=== PATIENT | male | born 1980 | race Two or more races ===

== ENCOUNTER 2023-03-22 13:54 | Emergency (ER) | payer MEDICAID, SELFPAY ==
[2023-03-22 14:13] VITALS: BP 117/65; BP 128/80; PULSE 63; PULSE 65; RESP 18; TEMP 36.5; O2SAT 98; O2SAT 99; BMI 23.6
--- NOTE | 2023-03-22 14:37 | ED.GENADULT ---
HPI - General Adult General Chief complaint: ETOH/Substance Use Stated complaint: PD requested evaluation, substance use per EMS Time Seen by Provider: 03/22/23 14:12 Source: patient, EMS and RN notes reviewed Mode of arrival: EMS Limitations: no limitations History of Present Illness HPI narrative: This is a 42-year-old male, with history of substance abuse, presenting to the emergency department via EMS after being found passed out an alley. Patient reported to EMS that he used heroin and cocaine. No Narcan was given. Patient is alert, and unsure why he is in the emergency department today. No suicidal or homicidal ideations. No chest pain or shortness of breath. No other complaints or concerns at this time. MD complaint: Drug use Onset (ago): day(s) Radiation: non-radiation Quality: aching Pain Consistency: constant Relieving factors: none Exacerbating factors: none Associated symptoms: denies other symptoms Treatments prior to arrival: none Related Data Allergies Allergy/AdvReac Type Severity Reaction Status Date / Time No Known Allergies Allergy Verified 03/22/23 14:37 Review of Systems Review of Systems: Yes all other systems are reviewed and are negative Constitutional: Constitutional: Reports as per [facility] Social History Social History Alcohol intake: current Alcohol intake frequency: 0-2 drinks per day Smoked in Last 30 Days: Yes Use of substances other than those prescribed or required for medical reasons: Yes Substance Use Type: Crack/Cocaine and Heroin Physical Exam ED Vital Signs: Vital Signs - 24 hr 03/22/23 14:13 Temperature 97.7 F Pulse Rate 65 Respiratory Rate 18 Blood Pressure 117/65 Pulse Oximetry 99 Oxygen Delivery Method Room Air BMI result Body Mass Index 23.6 Const General: cooperative, comfortable and no acute distress Orientation/consciousness: patient oriented x3 Limitations: no limitations HENIN Head: Yes normal to inspection, Yes normocephalic and Yes atraumatic Ears: hearing grossly normal bilaterally General nose exam: Normal external nose present Face and sinus: Yes normal facial exam Mouth: Normal oral and palatal mucosa present, oropharynx normal and moist mucous membranes Throat: Yes posterior oropharynx normal Eyes General: appearance normal, both eyes and all related structures Eyelids: Yes eyelids normal Conjunctivae: conjunctivae normal Sclerae: sclerae normal Pupils: Equal, round and reactive pupils present EOM: EOMs intact bilaterally Neck Neck: Yes normal visual inspection, Yes full ROM and Yes no lymphadenopathy Lymphatic: no lymphadenopathy noted Chest Chest palpation & inspection: normal inspection of the chest Resp Effort & Inspection: normal respiratory effort and able to speak in complete sentences Auscultation: clear to auscultation bilaterally, no crackles, no rales, no rhonchi and no wheezes Cardio Rate: regular rate Rhythm: regular rhythm Heart sounds: S1 normal heart sound present and S2 normal heart sound present GI Inspection: Yes normal to inspection Skin General skin exam: no rashes or lesions noted Trauma: no lacerations or abrasions Wounds: no wounds Neuro General: patient oriented x3 and moves all extremities Cranial nerves: Yes Equal, round and reactive pupils present Extrem General: Yes normal to inspection Right upper extremity: normal to inspection Left upper extremity: normal to inspection Right lower extremity: normal to inspection Left lower extremity: normal to inspection Medical Decision Making Medical Decision Making MDM Narrative: This is a 42-year-old male presenting to the emergency department via EMS after being found in an alley passed out . On arrival, all vital signs within normal limits. Patient is alert and oriented. He did not receive Narcan in route. He is becoming agitated as he is unsure why he is in the emergency department. He is not suicidal or homicidal. Patient has no complaints. There is no need to keep patient here for further evaluation. Patient given a take-home Narcan. Patient stable for discharge. Differential Diagnosis Differential Diagnoses: The differential diagnosis associated with the presentation includes Opioid use disorder, drug abuse, alcohol dependency, anxiety, depression Discharge Plan Discharge Clinical Impression: Drug abuse Patient Disposition: Home, Self-Care Additional Instructions: Avoid using drugs. We gave you a script for Narcan. Please return for re-evaluation if any new or worsening symptoms occur.
[2023-03-22] MEDS: Naloxone HCl Nasal TAKE HOME 4 MG SPRAY 8 MG NOSTRILALT (15:01)
== END 2023-03-22 14:59 | disposition home or self-care (01) ==
LOC: HO.ED 14:46
PROVIDERS: Emergency Provider Emergency Medicine
DX: F11.129 Opioid abuse with intoxication, unspecified (principal); F14.129 Cocaine abuse with intoxication, unspecified; Z71.51 Drug abuse counseling and surveillance of drug abuser
CPT/HCPCS: 99284

== ENCOUNTER 2023-03-23 06:36 | Emergency (ER) | payer MEDICAID, SELFPAY ==
[2023-03-23 06:40] VITALS: BP 142/74; PULSE 50; O2SAT 96
[2023-03-23 06:46] VITALS: BP 118/67; PULSE 55; RESP 18; TEMP 36.5; O2SAT 98; BMI 27.4
--- NOTE | 2023-03-23 07:03 | ED.PSYCH ---
HPI - Psych General Chief Complaint: ETOH/Substance Use Stated Complaint: chronic pain Time Seen by Provider: 03/23/23 07:00 Source: patient Mode of arrival: EMS Limitations: other (poor historian) History of Present Illness HPI Narrative: 42 yo male states he is homeless has hx of cocaine and fentanyl abuse was seen yesterday in ED after being found sleeping in alley he comes today after being found sleeping on sidewalk he denies trauma or headache. he is hungry and asking for food. he has no SI and is more calm and cooperative today. He admits to drug use in the night. he wants to go to detox. he is originally from [place]. complaint: substance abuse Onset (ago): year(s) Duration: getting worse History of same: Yes Relieving factors: none Exacerbating factors: drug use Context: recent drug abuse Associated psychiatric symptoms: none Associated symptoms: denies other symptoms Treatments prior to arrival: none Related Data Allergies Allergy/AdvReac Type Severity Reaction Status Date / Time No Known Allergies Allergy Verified 03/22/23 14:37 Review of Systems Review of Systems: Constitutional : No Fever, No Chills Cardiovascular : No Chest Pain, No SOB Respiratory : No Cough, No Sputum, No Dyspnea Gastrointestinal : No Nausea, No Vomiting, No Diarrhea, No Hematochezia, No Melena Genitourinary : No Dysuria, No Urinary Frequency, No Hematuria Musculoskeletal : No Myalgias Skin : No Skin Lesions, No rash Neuro : No Weakness, No Numbness, No Paresthesias, No Dizziness, No Headache Psych : no Anxiety, no Depression, no SI/HI All other systems reviewed and are negative ON LICENSE OF [facility] Past Medical History Attestation statement: The following information was validated with the patient. Medical History Polysubstance abuse Social History Social History (Updated 03/23/23 @ 07:30 by Candice Christian DO) Alcohol intake: current Alcohol intake frequency: a few times a week Alcohol type: beer Patient Tobacco Use Status: Current someday Tobacco user Smoked in Last 30 Days: Yes Substance Use Type: Crack/Cocaine and Other Substance Use Type Other:: fentanyl Advance Directives: No Physical Exam Vital Signs: Vital Signs: Last Vital Signs Temp 97.8 F 03/23/23 07:06 Pulse 53 03/23/23 12:09 Resp 16 08/21/23 12:09 BP 106/55 L 03/23/23 12:09 Pulse Ox 97 03/23/23 12:09 O2 Del Method Room Air 03/23/23 12:09 BMI result Body Mass Index 27.4 Appearance: slightly somnolent but carries a conversation. Oriented X3. No acute distress. Eyes: Pupils pinpoint ENT: Pharynx normal. Atraumatic Neck: Normal inspection. Neck supple. CVS: Normal heart rate and rhythm. Pulses normal. Respiratory: No respiratory distress. Breath sounds normal. Abdomen: Soft and nontender. Skin: Skin warm and dry. Normal skin color. Normal skin turgor. Extremities: No lower extremity edema. Neuro: Oriented X 3. No motor deficit. No sensory deficit. Course Course Course Narrative: Physician observation started at 735am. Patient placed in physician observation because the patient needed more time for CARE team and our addiction/recovery services to help with detox. At the time observation was started the patient's vitals were stable, patient is slightly sleepy but easily woken, Neuro: nonfocal, CV RRR, Lungs clear Medical Decision Making Medical Decision Making MDM Narrative: 42 yo male with PMH of polysubstance abuse here with c/o wanting detox and being homeless - he states he wants to get off fentanyl and cocaine. He denies SI or medical complaints at this time. He has no signs of head trauma. Will observe for overdose - home narcan ordered, CARE team consult ordered. VS stable. Differential Diagnosis Differential Diagnoses: The differential diagnosis associated with the presentation includes opiate abuse, substance abuse, denies SI Admission/Observation Consideration of admission/observation: Escalation of care including admission/observation considered observe until CARE team can see patient Consult Healthcare Provider Management of the patient was discussed with: Behavioral Health Provider Independent Historian Clinical information obtained from an independent historian. History obtained from or confirmed by: EMS External Record Review External record reviewed: Inpatient record Social Determinants Patient?s care significantly limited by Social Determinants of Health including: Inadequate housing, Low income, Alcoholism and drug addiction in family and Problems related to primary support group Discharge Plan Discharge Clinical Impression: Polysubstance abuse Patient Disposition: Still a Patient Instructions: Polysubstance Abuse (ED)
[2023-03-23 07:06] VITALS: BP 139/87; PULSE 98; RESP 18; TEMP 36.6; O2SAT 98
--- NOTE | 2023-03-23 07:12 | PC.NURSE ---
Patient arrived by ems after being found on the sidewalk shaking. Patient alert, admits to using fentanyl and crack. Reports drinking some beer this morning. Patient requesting detox, provider aware. Reports chronic 2/10 left knee pain. Food and fluids provided per patients request.
--- NOTE | 2023-03-23 09:16 | MHC.RECOVRN ---
Attempt made to make contact with pt, pt sleeping deeply at this time, resp reg and even, VSS on monitor. Plan to re-attempt contact when the pt is more awake and alert.
[2023-03-23 10:26] VITALS: BP 100/46; PULSE 55; RESP 16; O2SAT 96
[2023-03-23 12:09] VITALS: BP 106/55; PULSE 53; RESP 16; O2SAT 97
--- NOTE | 2023-03-23 12:44 | MHC.RECOVSUP ---
Addendum entered by Edwin Mott 03/23/23 14:39: ATS bed search exhausted, pt provided resources to follow up from the community. Original Note: Met with pt in ED21 who is here for DIONNE. Pt reports taking about 4-5 grams of heroin intravenously with last use yesterday. Pt has no history of overdose or ATS and is currently interested in Methadone. Pt is interested in ATS and has no other questions or concerns at this time. ATS bed search in process.
[2023-03-23 14:17] VITALS: BP 114/64; PULSE 55; RESP 18; TEMP 36.3; O2SAT 96
[2023-03-23] MEDS: Naloxone HCl Nasal TAKE HOME 4 MG SPRAY 8 MG NOSTRILALT (14:22)
--- NOTE | 2023-03-23 14:55 | PC.NURSE ---
Discharge instructions reviewed with patient who verbalized understanding
== END 2023-03-23 15:01 | disposition home or self-care (01) ==
PROVIDERS: Emergency Provider Emergency Medicine
DX: F14.19 Cocaine abuse with unspecified cocaine-induced disorder (principal); F17.200 Nicotine dependence, unspecified, uncomplicated; Z71.6 Tobacco abuse counseling
CPT/HCPCS: 99284; 99285

== ENCOUNTER 2023-04-04 19:43 | Emergency (ER) | payer MEDICAID, SELFPAY ==
--- NOTE | ~2023-04-04 | CT_ITS ---
EXAMINATION: CT HEAD WITHOUT CONTRAST CT CERVICAL SPINE WITHOUT CONTRAST CLINICAL INFORMATION: Fall. COMPARISON: None. TECHNIQUE: Imaging was performed from the skull base to vertex without intravenous administration of contrast. In addition, helical noncontrast CT imaging was acquired through the cervical spine and source images were reviewed along with axial reconstructions and sagittal and coronal MPRs. [This CT examination was performed using dose optimization techniques as appropriate, variously including the following: *Automated exposure control *Adjustment of mA and/or kV according to patient size (this includes techniques or standardized protocols for targeted exams where dose is matched to indication/reason for exam; i.e. extremities or head) *Use of iterative reconstruction technique] DLP: 1360 mGy-cm FINDINGS: HEAD: No intracranial mass, hemorrhage, or midline shift is visualized. The ventricles and sulci are proportional. No extra-axial collections are identified. The paranasal sinuses and mastoid air cells are well aerated. CERVICAL SPINE: There is no evidence of acute cervical spine fracture. Vertebral bodies remain normal in height. Cervical vertebrae have normal alignment. There is multilevel degenerative spondylosis of the cervical spine with disc height narrowing and endplate spurs and facet joint arthrosis No pre- or paravertebral soft tissue abnormality is identified. Limited assessment of the lung apices is unremarkable. CT/CT head/brain wo IV con IMPRESSION: 1. No acute intracranial pathology. 2. No CT evidence of acute cervical spine fracture or traumatic subluxation
--- NOTE | ~2023-04-04 | XR_ITS ---
EXAMINATION: 1. Right foot. 2. Right tibia and fibula. CLINICAL INFORMATION: Right foot and leg pain. Swelling. COMPARISON: None. TECHNIQUE: 1. Right foot. Single lateral view of right foot. 2. Right tibia-fibula. 2 views of the lower leg. Images obtained for this exam is limited. The elevator service technician noted patient uncooperative and combative for the exam. FINDINGS: 1. Right foot. There are 2 orthopedic screws in the distal tibia. There are also 2 orthopedic screws in the talus. Dystrophic calcifications around the ankle joint. No displaced fracture of the foot evident. 2. Right tibia-fibula. Images aren't in the lateral projection only covering the leg. The AP crosstable lateral view the is only of the distal tibia and the ankle. Again noted are the 2 orthopedic screws in the distal tibia at the medial malleolus. 2 orthopedic screws in the talus. No acute fracture evident. Small corticated osseous densities around both medial and lateral malleolus chronic related to old trauma. XR/XR foot RT 2V IMPRESSION: Exam limited. 1. Right foot. No acute abnormality. 2. Right tibia-fibula. No acute abnormality of the right tibia-fibula. There are 2 orthopedic screws in the distal tibia and talus. Dystrophic calcifications around the ankle joint. No acute osseous abnormality.
--- NOTE | ~2023-04-04 | XR_ITS ---
EXAMINATION: 1. Right foot. 2. Right tibia and fibula. CLINICAL INFORMATION: Right foot and leg pain. Swelling. COMPARISON: None. TECHNIQUE: 1. Right foot. Single lateral view of right foot. 2. Right tibia-fibula. 2 views of the lower leg. Images obtained for this exam is limited. The earth science laboratory technician noted patient uncooperative and combative for the exam. FINDINGS: 1. Right foot. There are 2 orthopedic screws in the distal tibia. There are also 2 orthopedic screws in the talus. Dystrophic calcifications around the ankle joint. No displaced fracture of the foot evident. 2. Right tibia-fibula. Images aren't in the lateral projection only covering the leg. The AP crosstable lateral view the is only of the distal tibia and the ankle. Again noted are the 2 orthopedic screws in the distal tibia at the medial malleolus. 2 orthopedic screws in the talus. No acute fracture evident. Small corticated osseous densities around both medial and lateral malleolus chronic related to old trauma. XR/XR tibia fibula RT 2V IMPRESSION: Exam limited. 1. Right foot. No acute abnormality. 2. Right tibia-fibula. No acute abnormality of the right tibia-fibula. There are 2 orthopedic screws in the distal tibia and talus. Dystrophic calcifications around the ankle joint. No acute osseous abnormality.
--- NOTE | ~2023-04-04 | CT_ITS ---
EXAMINATION: CT HEAD WITHOUT CONTRAST CT CERVICAL SPINE WITHOUT CONTRAST CLINICAL INFORMATION: Fall. COMPARISON: None. TECHNIQUE: Imaging was performed from the skull base to vertex without intravenous administration of contrast. In addition, helical noncontrast CT imaging was acquired through the cervical spine and source images were reviewed along with axial reconstructions and sagittal and coronal MPRs. [This CT examination was performed using dose optimization techniques as appropriate, variously including the following: *Automated exposure control *Adjustment of mA and/or kV according to patient size (this includes techniques or standardized protocols for targeted exams where dose is matched to indication/reason for exam; i.e. extremities or head) *Use of iterative reconstruction technique] DLP: 1360 mGy-cm FINDINGS: HEAD: No intracranial mass, hemorrhage, or midline shift is visualized. The ventricles and sulci are proportional. No extra-axial collections are identified. The paranasal sinuses and mastoid air cells are well aerated. CERVICAL SPINE: There is no evidence of acute cervical spine fracture. Vertebral bodies remain normal in height. Cervical vertebrae have normal alignment. There is multilevel degenerative spondylosis of the cervical spine with disc height narrowing and endplate spurs and facet joint arthrosis No pre- or paravertebral soft tissue abnormality is identified. Limited assessment of the lung apices is unremarkable. CT/CT cervical spine wo IV con IMPRESSION: 1. No acute intracranial pathology. 2. No CT evidence of acute cervical spine fracture or traumatic subluxation
[2023-04-04 19:56] VITALS: BP 119/64; BP 132/84; PULSE 78; PULSE 82; RESP 20; TEMP 37.9; O2SAT 98; O2SAT 99; BMI 22.9
--- NOTE | 2023-04-04 20:01 | ED_ITS ---
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 Patient admits to hitting head, denies LOC. Denies illicit drug use today. States has been nonambulatory secondary to pain. Patient is poor historian complaint: ankle injury Related Data Allergies Allergy/AdvReac Type Severity Reaction Status Date / Time No Known Allergies Allergy Verified 03/22/23 14:37 Review of Systems Review of Systems: Constitutional: No Fever, No Chills ENT/Mouth: No Ear Pain, No Nasal Congestion, NoNo sore throat, No Rhinorrhea, No Swallowing Difficulty Cardiovascular: No Chest Pain, No SOB Respiratory: No Cough, No Sputum Gastrointestinal: No Nausea, No Vomiting, No Abdominal pain Musculoskeletal: +joint pain, No Myalgias, + Joint Swelling Skin: No Skin Lesions, No rash Neuro: No Weakness, No Numbness, No Paresthesias, +head injury, No LOC Yes all other systems are reviewed and are negative Constitutional: Constitutional: Reports as per [facility] Past Medical History Attestation statement: The following information was validated with the patient. Source: old records reviewed Medical History Polysubstance abuse Social History Social History Alcohol intake: current Alcohol intake frequency: a few times a week Alcohol type: beer Patient Tobacco Use Status: Current someday Tobacco user Substance Use Type: Crack/Cocaine and Other Advance Directives: No Advance Directives Information Provided: Yes Physical Exam Vital Signs: Vital Signs: Last Vital Signs Temp 99.7 F 04/04/23 22:15 Pulse 84 04/04/23 22:15 Resp 17 04/04/23 22:15 BP 107/58 L 04/04/23 22:15 Pulse Ox 98 04/04/23 22:15 O2 Del Method Room Air 04/04/23 22:15 BMI result Body Mass Index 22.9 Const: Other: Yelling, uncooperative, disheveled, poor hygiene Appears under the influence General: no acute distress Orientation/consciousness: patient oriented x3 Limitations: no limitations HEENT: Head: Yes normal to inspection, Yes atraumatic, No Zepeda's sign and No raccoon eyes Ears: hearing grossly normal bilaterally General nose exam: Normal external nose present Face and sinus: Yes normal facial exam Eyes: General: appearance normal, both eyes and all related structures EOM: EOMs intact bilaterally Neck: Neck: Yes normal visual inspection and Yes no meningeal signs Resp: Effort & Inspection: normal respiratory effort and no respiratory distress Cardio: Rate: regular rate Heart sounds: S1 normal heart sound present and S2 normal heart sound present GI: Inspection: Yes normal to inspection Palpation (GI): Soft to palpation, nontender, no guarding and not rigid Skin: Rashes: no rashes Wounds: no wounds Neuro: General: patient oriented x3, tone normal, moves all extremities and no meningeal signs Cranial nerves: Yes CN's II-XII intact bilaterally Extrem: Other: Right ankle/foot with notable swelling and deformity. Diffusely tender to palpation. Limited ROM secondary to pain. NV intact. R knee w/o deformity, nontender. Course Course Course Narrative: -2050--will give patient 5 of IM Haldol to obtain imaging -2099--ED care transferred [facility] pending imaging and dispo per results Reevaluation(s) Reevaluation #1: X-ray without acute fracture of the foot or tib-fib. CT scan of the head and neck without any acute bleed or stroke. Patient has been medicated with Haldol in order to obtain the images. He is sleeping and not consistently awake. Unable to ambulate at this time. Will place patient physician observation at this time. Awaiting sober re- evaluation. Time: 22:51 Medications Administered Discontinued Medications Generic Name Dose Route Start Last Admin Trade Name Freq PRN Reason Stop Dose Admin Haloperidol Lactate 5 mg 04/04/23 20:50 04/04/23 21:15 Haloperidol Lactate 5 Mg/Ml Vial IM 04/04/23 20:51 5 mg STAT STA Administration Ibuprofen 800 mg 04/04/23 20:07 04/04/23 20:21 Ibuprofen 800 Mg Tablet PO 04/04/23 20:08 800 mg ONCE ONE Administration Medical Decision Making Medical Decision Making 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 On exam VSS, uncooperative, disheveled, appears under the influence. Right ankle/foot with noted deformity and swelling, diffusely tender to palpation. Neurovascular intact. No evidence of head trauma or midline spinous tenderness. Patient is poor historian/difficult to examine due to noncompliance. Concern for fracture vs sprain vs ICH. Concern for polysubstance abuse Plan: Head/C-spine CT, x-ray ordered Please refer to course for remaining clinical decision making, interpretation of labs/imaging results, and discussions with consultants and/or family members. Differential Diagnosis Differential Diagnoses: The differential diagnosis associated with the presentation includes As above Admission/Observation Consideration of admission/observation: Escalation of care including admission/observation considered Lab Data [facility] Lab Attestation statement: I reviewed the patient's lab results. Labs: Lab Results 04/05/23 Range/Units 00:31 Urine Opiates Screen Not Detected (Not Detect) Urine Fentanyl Screen POSITIVE H (Not Detect) Ur Barbiturates Screen Not Detected (Not Detect) Ur Phencyclidine Scrn Not Detected (Not Detect) Ur Amphetamines Screen Not Detected (Not Detect) U Benzodiazepines Scrn Not Detected (Not Detect) Urine Cocaine Screen POSITIVE H (Not Detect) U Marijuana (THC) Screen Not Detected (Not Detect) Independent Interpretation I performed an independent interpretation of an: Plain X-Ray Radiology Impression Discussion of test interpretation with radiology: I have reviewed the radiologist's reading. Radiologist Impression: ?CT/CT head/brain wo IV con IMPRESSION: 1. No acute intracranial pathology. 2. No CT evidence of acute cervical spine fracture or traumatic subluxation ?XR/XR foot RT 2V IMPRESSION: Exam limited. ? 1.? Right foot. No acute abnormality. 2.? Right tibia-fibula. No acute abnormality of the right tibia-fibula. There are 2 orthopedic screws in the distal tibia and talus. Dystrophic calcifications around the ankle joint. No acute osseous abnormality. ? ? Independent Historian Clinical information obtained from an independent historian. History obtained from or confirmed by: EMS External Record Review External record reviewed: Inpatient record, Office record, Outpatient record, Prior outpatient labs, Prior outpatient radiology, Primary care record and Outside ED record Tests considered The following testing was considered but not selected: As above Prescription Management I considered prescription management with: Pain Medication Social Determinants Patient?s care significantly limited by Social Determinants of Health including: Inadequate housing, Low income, Alcoholism and drug addiction in family and Unemployment Critical Care Time Critical Care Time Critical Care Time: No Discharge Plan Discharge Clinical Impression: Ankle injury, Head injury Patient Disposition: Still a Patient
[2023-04-04] MEDS: Ibuprofen 800 MG TABLET PO (20:21)
[2023-04-04] MEDS: Haloperidol Lactate 5 MG/ML VIAL IM (21:15)
[2023-04-04 22:15] VITALS: BP 107/58; PULSE 84; RESP 17; TEMP 37.6; O2SAT 98
[2023-04-05 00:50] LABS: Amphetamine Screen Urine Not Detected (Not Detect); Barbiturates, Urine Not Detected (Not Detect); Benzodiazepines Screen Urine Not Detected (Not Detect); Cannabinoid Screen Urine Not Detected (Not Detect); Cocaine Screen Urine POSITIVE (Not Detect); Fentanyl, urine POSITIVE (Not Detect); Opiate Screen Urine Not Detected (Not Detect); Phencyclidine Screen Urine Not Detected (Not Detect)
--- NOTE | 2023-04-05 02:00 | PC.NURSE ---
Patient resting on stretcher with eyes closed. Patient breathing even with equal chest rising. No s/s of distress noted at this time.
[2023-04-05 02:16] VITALS: BP 102/63; PULSE 57; RESP 18; TEMP 36.8; O2SAT 99
--- NOTE | 2023-04-05 03:30 | PC.NURSE ---
patient moved from emc bed 5 to ed 19 hallway. pt asleep comfortably on stretcher. respirations even and unlabored. report received from minnie MARTINEZ. per previous RN will ambulate pt in AM and reassess for safe discharge in morning.
[2023-04-05 04:16] VITALS: BP 105/65; PULSE 57; RESP 16; TEMP 36.6; O2SAT 97
--- NOTE | 2023-04-05 05:53 | PC.NURSE ---
when trying to get patient up for ambulation trial pt presenting with increased frustration and aggression yelling i cant walk! and tells this RN and charge coordinator that he is homeless and has no jacket. pt informed at this time he is being discharged from the provider as all imaging negative for fractures/bleeds/etc. will place ALMA DELIA bandage wrap to R ankle and provide/educate patient with crutches for discharge. pt told he can sit in waiting room and call for ride. pt agreeable to plan at this time.
== END 2023-04-05 06:09 | disposition home or self-care (01) ==
PROVIDERS: Physician Assistant; Emergency Provider Student in an Organized Health Care Education/Training Program
DX: S09.90XA Unspecified injury of head, initial encounter (principal); S99.911A Unspecified injury of right ankle, initial encounter; W10.1XXA Fall (on)(from) sidewalk curb, initial encounter; F19.10 Other psychoactive substance abuse, uncomplicated; F17.200 Nicotine dependence, unspecified, uncomplicated; Y93.01 Activity, walking, marching and hiking; Y92.414 Local residential or business street as the place of occurrence of the external cause; Y99.9 Unspecified external cause status
CPT/HCPCS: 70450; 72125; 73590; 73620; 80307; 96372; 99284

== ENCOUNTER 2023-07-03 16:06 | Emergency (ER) | payer SELFPAY ==
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
[2023-07-03 16:25] VITALS: BP 00/0; PULSE 0; RESP 0; TEMP -17.7; TEMP 0; O2SAT 0
== END 2023-07-03 17:20 ==
PROVIDERS: Emergency Provider Emergency Medicine
DX: F11.10 Opioid abuse, uncomplicated (principal); F17.200 Nicotine dependence, unspecified, uncomplicated; Z71.6 Tobacco abuse counseling
CPT/HCPCS: 99282

== ENCOUNTER 2023-08-01 06:23 | Emergency (ER) | payer OTHER, SELFPAY ==
--- NOTE | ~2023-08-01 | XR_ITS ---
EXAMINATION: XR CHEST CLINICAL INFORMATION: Altered mental status. COMPARISON: None available. TECHNIQUE: Frontal view of the chest was obtained. FINDINGS: Mild patchy bilateral airspace opacities. No large, focal airspace consolidation. No pleural effusion or pneumothorax. Unremarkable cardiac mediastinal silhouette. XR/XR chest 1V IMPRESSION: Mild patchy bilateral airspace opacities.
--- NOTE | ~2023-08-01 | CT_ITS ---
EXAMINATION: CT HEAD WITHOUT CONTRAST CLINICAL INFORMATION: Headache status-post fall. COMPARISON: CT head dated 04/04/2023. TECHNIQUE: Contiguous axial imaging was performed from the skull base to vertex without intravenous administration of contrast. Multiplanar reformatted images are submitted. This CT examination was performed using dose optimization techniques as appropriate, variously including the following: *Automated exposure control *Adjustment of mA and/or kV according to patient size (this includes techniques or standardized protocols for targeted exams where dose is matched to indication/reason for exam; i.e. extremities or head) *Use of iterative reconstruction technique DLP: 1229 mGy-cm (head and cervical spine) FINDINGS: There is no acute intracranial hemorrhage or evidence of territorial infarction. No abnormal mass effect or midline shift is seen. [place] to white matter differentiation is well preserved. There is no abnormal attenuation within the brain parenchyma. The ventricles are normal in size. No extra-axial fluid collections are identified. There is a small right frontal scalp hematoma. The underlying calvarium is intact, without fracture noted. The middle ear cavity and mastoid air cells are clear. The visualized paranasal sinuses are clear. CT/CT cervical spine wo IV con IMPRESSION: 1. No acute intracranial pathology. 2. A small right frontal scalp hematoma is seen, without underlying fracture noted. EXAMINATION: CT CERVICAL SPINE WITHOUT CONTRAST CLINICAL INFORMATION: Neck pain status-post fall. COMPARISON: CT cervical spine dated 04/04/2023. TECHNIQUE: Contiguous axial imaging was performed through the cervical spine without intravenous administration of contrast. Multiplanar reformatted images are submitted. This CT examination was performed using dose optimization techniques as appropriate, variously including the following: *Automated exposure control *Adjustment of mA and/or kV according to patient size (this includes techniques or standardized protocols for targeted exams where dose is matched to indication/reason for exam; i.e. extremities or head) *Use of iterative reconstruction technique DLP: As above FINDINGS: Vertebral body heights and alignment are normal. Again, there is multi-level degenerative disc disease, spondylosis and Schmorl's node formation. Degenerative disc disease is most pronounced extending from C3-C4 through C5-C6, where it is moderately severe. No acute fracture or spondylolisthesis is seen. There is multi-level cervical spondylosis. The posterior elements are intact. There is no prevertebral soft tissue swelling. The dens is intact. The bilateral lung apices are clear. A small bleb is seen at the medial left apex. IMPRESSION: 1. No acute fracture or spondylolisthesis is seen. 2. There is multi-level cervical and degenerative disc disease, spondylosis and Schmorl's node formation. Degenerative disc disease is most pronounced extending from C3-C4 through C5-C6, where it is moderate to severe. Fleischner guidelines were followed.
--- NOTE | 2023-08-01 06:54 | ECG_ITS ---
Test Reason : AMS Blood Pressure : / mmHG Vent. Rate : 062 BPM Atrial Rate : 062 BPM P-R Int : 176 ms QRS Dur : 082 ms QT Int : 478 ms P-R-T Axes : 038 057 049 degrees QTc Int : 485 ms Normal sinus rhythm Prolonged QT Abnormal ECG No previous ECGs available Referred By: Mercedez Dudley Electronically Signed By:JODI SOSA
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
[2023-08-01 07:36] VITALS: BP 140/82; PULSE 68; RESP 16; TEMP 36; O2SAT 100; BMI 30.4
[2023-08-01 07:38] LABS: MANUAL DIFF FLAG NO
[2023-08-01 07:44] VITALS: RESP 16
[2023-08-01 07:45] LABS: Basophils Percent Auto 0.1 % (0-2); Eosinophils Absolute Auto 0.2 X10*3/uL (0.0-0.4); Eosinophils Percent Auto 2.3 % (0-4); Hematocrit 33.4 % (42.0-52.0); Hemoglobin 10.7 g/dl (14.0-18.0); Imm Gran Abs Auto 0.04 X10*3/uL (0.00-0.03); Imm Gran Pct Auto 0.4 % (0.0-0.4); Lymphocytes Absolute Auto 2.2 X10*3/uL (1.2-4.9); Lymphocytes Percent Auto 23.4 % (20-40); Mean Corpuscular Hemoglobin 25.1 pg (27.0-33.0); Mean Corpuscular Volume 78.4 fL (80.0-98.0); Mean Platelet Volume 8.4 fL (9.4-12.4); Monocytes Absolute Auto 0.8 X10*3/uL (0.1-1.2); Neutrophils Percent Auto 64.8 % (45-73); Platelet Count 330 X10*3/uL (160-400); Red Blood Count 4.26 X10*6/uL (4.60-5.80); White Blood Count 9.2 X10*3/uL (4.8-10.8)
--- NOTE | 2023-08-01 07:45 | PC.NURSE ---
Pt resting on stretcher, pt states he fell, then falls asleep. Pt not answering assessment questions. Abusable to verbal stimuli. bump to right side of forehead noted. labs drawn and sent.
[2023-08-01 07:53] LABS: Ammonia 37 umol/L (13-55)
[2023-08-01 08:02] LABS: Alanine Aminotransferase 17 U/L (0-40); Albumin Level 3.8 g/dL (3.5-5.0); Alkaline Phosphatase 96 U/L (39-117); Anion Gap 13 (12-20); Aspartate Amino Transferase 27 U/L (5-37); Bilirubin Direct < 0.2 mg/dL (0.0-0.5); Bilirubin Total 0.2 mg/dL (0.0-1.0); Blood Urea Nitrogen 16 mg/dL (9-16); Calcium 8.9 mg/dL (8.4-10.2); Carbon Dioxide 26 mmol/L (22-29); Chloride 102 mmol/L (96-108); Creatinine Clr Calc Pharmacy 150.6; Estimated Glomerular Filt Rate > 60; Ethanol 36 mg/dL; Glucose Random 98 mg/dL (60-115); Potassium 3.9 mmol/L (3.3-5.1); Sodium 137 mmol/L (135-145); Total Protein 7.4 g/dL (6.5-8.0)
[2023-08-01 08:06] LABS: Amphetamine Screen Urine Not Detected (Not Detect); Barbiturates, Urine Not Detected (Not Detect); Benzodiazepines Screen Urine Not Detected (Not Detect); Cannabinoid Screen Urine Not Detected (Not Detect); Cocaine Screen Urine POSITIVE (Not Detect); Fentanyl, urine POSITIVE (Not Detect); Opiate Screen Urine POSITIVE (Not Detect); Phencyclidine Screen Urine Not Detected (Not Detect)
[2023-08-01 08:17] LABS: Troponin-I High Sensitivity < 2.7 ng/L (<3.5-35.0)
[2023-08-01 11:11] VITALS: BP 135/75; PULSE 74; RESP 21; TEMP 36.7; O2SAT 98
[2023-08-01] MEDS: Doxycycline Monohydrate 100 MG CAPSULE PO (11:38)
[2023-08-01] MEDS: Amoxicillin/Potassium Clav 875 MG TABLET PO (11:38)
[2023-08-01 12:19] LABS: Influenza A PCR NEGATIVE (Negative); Influenza B PCR NEGATIVE (Negative); Resp Syncy Virus RNA Qual PCR NEGATIVE (Negative); SARS COV2 PCR INHOUSE NEGATIVE (Negative)
--- NOTE | 2023-08-01 13:08 | MHC.RECOVRN ---
Notified by ED provider pt is interested in ATS. Referral sent to [facility].
[2023-08-01 14:00] VITALS: BP 114/60; PULSE 71; RESP 16; O2SAT 98
--- NOTE | 2023-08-01 15:14 | MHC.RECOVRN ---
[facility] does not have bed availability. Following facilities called and also do not have bed availability- [facility], [facility], [facility], [facility], [facility], [place], [facility]. Attempted to discuss with pt, however, pt very lethargic and unable to engage in conversation. Pt did verbally acknowledge that there is no bed availability today. Pt provided with ATS list as well as community resources. Encouraged to go to [facility]. Discussed with provider and RN.
[2023-08-01 15:22] VITALS: BP 126/59; PULSE 75; RESP 16; O2SAT 98
== END 2023-08-01 16:19 | disposition home or self-care (01) ==
PROVIDERS: Emergency Medicine; Emergency Provider Emergency Medicine
DX: S09.90XA Unspecified injury of head, initial encounter (principal); R41.82 Altered mental status, unspecified; J18.9 Pneumonia, unspecified organism; F10.129 Alcohol abuse with intoxication, unspecified; M54.2 Cervicalgia; R51.9 Headache, unspecified; Y90.1 Blood alcohol level of 20-39 mg/100 ml; W01.0XXA Fall on same level from slipping, tripping and stumbling without subsequent striking against object, initial encounter; Y93.9 Activity, unspecified; Y92.9 Unspecified place or not applicable; Y99.9 Unspecified external cause status; Z79.899 Other long term (current) drug therapy; Z20.822 Contact with and (suspected) exposure to COVID-19; Z20.828 Contact with and (suspected) exposure to other viral communicable diseases
CPT/HCPCS: 0241U; 36415; 70450; 71045; 72125; 80048; 80076; 80307; 82140; 82550; 83735; 84484; 85025; 93005; 99285

== ENCOUNTER → 2023-08-01 06:54 | Outpatient (BNV) | payer OTHER, SELFPAY | PROVIDERS: Emergency Provider Emergency Medicine; Visit Provider Internal Medicine | DX: I45.81 Long QT syndrome (principal); R41.82 Altered mental status, unspecified | CPT/HCPCS: 93010 ==

== ENCOUNTER 2023-08-31 06:47 | Emergency (ER) | payer OTHER, SELFPAY ==
--- NOTE | 2023-08-31 | ECG_ITS ---
Test Reason : cp Blood Pressure : / mmHG Vent. Rate : 070 BPM Atrial Rate : 070 BPM P-R Int : 170 ms QRS Dur : 072 ms QT Int : 412 ms P-R-T Axes : 027 065 043 degrees QTc Int : 444 ms Normal sinus rhythm Normal ECG When compared with ECG of 01-AUG-2023 07:40, No significant change was found Referred By: Generic ED Physician Electronically Signed By:GIOVANNI MELENDEZ MD
--- NOTE | ~2023-08-31 | XR_ITS ---
EXAMINATION: XR CHEST CLINICAL INFORMATION: Chest pain COMPARISON: None available. TECHNIQUE: 2 views of the chest were obtained. FINDINGS: No significant abnormality is noted involving the heart, lungs, mediastinum, bony thorax or soft tissues. XR/XR chest 2V IMPRESSION: Unremarkable chest examination.
[2023-08-31 06:56] VITALS: BP 162/88; PULSE 97; O2SAT 99
[2023-08-31 07:00] VITALS: BP 157/87; PULSE 95; RESP 17; TEMP 36.6; O2SAT 99; BMI 25.1
--- NOTE | 2023-08-31 07:01 | ED_ITS ---
HPI - General Adult General Chief complaint: Chest Pain Stated complaint: chest pain, dizziness and nausea Time Seen by Provider: 08/31/23 06:51 Source: patient, EMS and RN notes reviewed Mode of arrival: EMS Limitations: no limitations History of Present Illness HPI narrative: Patient is a 43-year-old male with history of polysubstance use presenting to the emergency department complaining of chest pain which began last evening. Patient reports that he is currently homeless and slipped outside all night, complains of feeling cold. Reports chest pain has been constant. Also reports shortness of breath, denies cough. Complains of nausea but denies vomiting or diarrhea. Denies abdominal pain. Denies fevers. Denies dysuria, hematuria or other urinary symptoms. Denies lower extremity edema, calf swelling or tenderness. MD complaint: chest pain Onset (ago): hour(s) Location: chest Radiation: non-radiation Severity: moderate Quality: sharp Pain Consistency: constant Relieving factors: none Exacerbating factors: none Associated symptoms: nausea/vomiting and shortness of breath Treatments prior to arrival: none Related Data Previous Rx's Medication Instructions Recorded amoxicillin 875 mg-potassium 1 tab PO BID #14 tabs 08/01/23 clavulanate 125 mg tablet doxycycline hyclate 100 mg capsule 100 mg PO BID 7 days #14 caps 08/01/23 Allergies Allergy/AdvReac Type Severity Reaction Status Date / Time No Known Allergies Allergy Verified 08/31/23 07:52 Review of Systems 2 Review of Systems: As per HPI. Yes all other systems are reviewed and are negative Constitutional: Constitutional: Reports as per HPI [facility] Past Medical History Medical History Polysubstance abuse Social History Social History Unable to assess alcohol history related to: Refusing to respond Alcohol intake: never Patient Tobacco Use Status: Tobacco use Unknown Substance Use Type: Crack/Cocaine and Other Advance Directives: No Advance Directives Information Provided: No Physical Exam ED Vital Signs: Vital Signs - 24 hr 08/31/23 07:00 Temperature 97.8 F Pulse Rate 95 Respiratory Rate 17 Blood Pressure 157/87 H Pulse Oximetry 99 Oxygen Delivery Method Room Air BMI result Body Mass Index 25.1 Vital signs have been reviewed and appear to be correct. Blood pressure elevated. Heart rate normal. Respiratory rate normal. Temperature normal. Oxygen saturation normal. Const General: no acute distress and poor hygiene Nutritional Appearance: average body habitus Orientation/consciousness: oriented to person, oriented to place, oriented to time and patient oriented x3 Limitations: no limitations HENMT Head: Yes normocephalic and Yes atraumatic Ears: external ears normal General nose exam: Normal external nose present Face and sinus: Yes face symmetric Mouth: oropharynx normal and moist mucous membranes Throat: Yes uvula midline Eyes Pupils: Equal, round and reactive pupils present Neck Neck: Yes normal visual inspection and Yes supple Chest Chest palpation & inspection: normal inspection of the chest and normal palpation of entire chest wall Resp Effort & Inspection: normal respiratory effort and able to speak in complete sentences Auscultation: clear to auscultation bilaterally Cardio Rate: regular rate Rhythm: regular rhythm Heart sounds: S1 normal heart sound present and S2 normal heart sound present GI Palpation (GI): Soft to palpation and nontender Auscultation: normoactive bowel sounds General: Yes no CVA tenderness Back/Spine/Pelvis Back: no CVA tenderness Skin Other: track abel to bilateral arms General skin exam: elasticity normal and turgor normal Neuro General: oriented to person, oriented to place, oriented to time, patient oriented x3, moves all extremities, no focal motor deficits and CN's II-XI intact bilaterally Cranial nerves: Yes Equal, round and reactive pupils present Cognition (Neuro): normal cognition Extrem General: Yes full ROM, Yes no pedal edema and Yes no calf tenderness Right upper extremity: Extremity exam: right hand Details: abnormal to inspection (flushed), normal capillary refill, neuromotor exam normal, neurosensory exam normal and normal ROM of fingers Left upper extremity: hand Details: abnormal to inspection (flushed), normal capillary refill, neuromotor exam normal, neurosensory exam normal and normal ROM of fingers Psych Mental Status: mental status grossly normal Affect: normal affect Thought process: Normal thought process present Course Course Course Narrative: Per recovery nurse, patient to go to [facility] detox at 8pm today. Medical Decision Making Medical Decision Making [facility] Narrative: Patient is a 43-year-old male with history of polysubstance use presenting to the emergency department complaining of chest pain which began last night. On exam patient is awake, A+Ox3, minimally cooperative with the exam, only answering yes/no to questions, BP elevated, VS otherwise WNL, afebrile, normal neurological exam without focal deficits, physical exam findings as above. Given reported symptoms and physical exam findings, initial differential includes ACS, musculoskeletal pain, GERD, PUD, viral illness, flu, Covid, pneumonia. Unlikely PE, PERC negative. Plan: EKG, labs, CXR, viral swabs Labs notable for negative troponin, mild leukocytosis, likely due to viral illness, mild anemia, no significant electrolyte abnormalities, no evidence of HUNTER, normal LFTs. X-ray chest notable for no evidence of pneumonia. My interpretation is in agreement with the radiologist's interpretation. Viral swabs negative. Urine drug screen positive for cocaine, fentanyl, and opiates. Results discussed with patient and all questions answered. Patient requesting to speak with recovery team regarding his drug use. Patient is medically cleared, placed on physician obs pending Addiciton medicine consult. PERC Rule for Pulmonary Embolism from [email or web address] on 08/31/2023 All calculations should be rechecked by clinician prior to use RESULT SUMMARY: 0 criteria No need for further workup, as <2% chance of PE. If no criteria are positive and clinician?s pre-test probability is <15%, PERC Rule criteria are satisfied. INPUTS: Age >=0 ?> 0 = No HR >=00 ?> 0 = No O? sat on room air ?> 0 = No Unilateral leg swelling ?> 0 = No Hemoptysis ?> 0 = No Recent surgery or trauma ?> 0 = No Prior PE or DVT ?> 0 = No Hormone use ?> 0 = No Lab Data 08/31/23 07:54 08/31/23 07:54 Labs: Lab Results 08/31/23 08/31/23 Range/Units 07:42 07:54 WBC 11.4 H (4.8-10.8) X10*3/uL RBC 4.93 (4.60-5.80) X10*6/uL Hgb 12.4 L (14.0-18.0) g/dl Hct 37.6 L (42.0-52.0) % MCV 76.3 L (80.0-98.0) fL MCH 25.2 L (27.0-33.0) pg MCHC 33.0 (31.0-36.0) g/dl RDW 13.5 (11.0-16.0) % Plt Count 350 (160-400) X10*3/uL MPV 8.8 L (9.4-12.4) fL Immature Gran % (Auto) 0.3 (0.0-0.4) % Neut % (Auto) 74.3 H (45-73) % Lymph % (Auto) 17.4 L (20-40) % [place] % (Auto) 7.4 (2-11) % Eos % (Auto) 0.4 (0-4) % Baso % (Auto) 0.2 (0-2) % Lymph # (Auto) 2.0 (1.2-4.9) X10*3/uL [place] # (Auto) 0.8 (0.1-1.2) X10*3/uL Eos # (Auto) 0.0 (0.0-0.4) X10*3/uL Baso # (Auto) 0.0 (0.0-0.2) X10*3/uL Abs Immat Gran (auto) 0.03 (0.00-0.03) X10*3/uL Absolute Neuts (auto) 8.5 H (2.0-8.3) x10*3/uL Absolute Nucleated RBC 0.000 (0.0-0.012) X10*3/uL Nucleated RBC % (auto) 0.0 (0.0-0.2) /100WBC PT 12.8 (11.1-13.3) SEC INR 1.1 (0.9-1.1) Sodium 137 (135-145) mmol/L Potassium 4.1 (3.3-5.1) mmol/L Chloride 103 (96-108) mmol/L Carbon Dioxide 25 (22-29) mmol/L Anion Gap 13 (12-20) BUN 10 (9-16) mg/dL Creatinine 0.68 (0.5-1.4) mg/dL Estim Creat Clear Calc 149.1 Estimated GFR > 60 Random Glucose 109 (60-115) mg/dL Calcium 9.6 D (8.4-10.2) mg/dL Total Bilirubin 0.4 (0.0-1.0) mg/dL AST 22 (5-37) U/L ALT 17 (0-40) U/L Alkaline Phosphatase 106 (39-117) U/L Troponin I High Sens < 2.7 (<3.5-35.0) ng/L Total Protein 7.9 (6.5-8.0) g/dL Albumin 3.8 (3.5-5.0) g/dL Urine Color Yellow Urine Appearance Clear Urine pH 6.0 (5.0-9.0) Ur Specific [place] 1.010 (1.005-1.025) Urine Protein Trace (Neg-Trace) mg/dL Urine Glucose (UA) Negative (Negative) mg/dL Urine Ketones Negative (Negative) mg/dL Urine Blood Negative (Negative) Urine Nitrite Negative (Negative) Ur Leukocyte Esterase Negative (Negative) Urine Opiates Screen POSITIVE H (Not Detect) Urine Fentanyl Screen POSITIVE H (Not Detect) Ur Barbiturates Screen Not Detected (Not Detect) Ur Phencyclidine Scrn Not Detected (Not Detect) Ur Amphetamines Screen Not Detected (Not Detect) U Benzodiazepines Scrn Not Detected (Not Detect) Urine Cocaine Screen POSITIVE H (Not Detect) U Marijuana (THC) Screen Not Detected (Not Detect) COVID-19 ([facility]) Negative (Negative) COVID-19 Clin Com See Note Influenza Type A ([place]) Negative (Negative) Influenza Type B ([place]) Negative (Negative) Influenza A & B Note See Note Independent Interpretation I performed an independent interpretation of an: EKG (Normal sinus rhythm, rate 70bpm, normal DC interval and QTc, no evidence of STEMI) Discharge Plan Discharge Clinical Impression: Atypical chest pain, Polysubstance (including opioids) dependence, daily use Patient Disposition: Still a Patient Instructions: Chest Pain (DC), Cocaine Abuse (ED), Opioid Use Disorder (ED), Opioid Withdrawal (ED) Additional Instructions: You were evaluated in the emergency department today for chest pain. Your evaluation has shown no signs of medical conditions requiring emergent intervention at this time, however we recommend that you follow-up with your primary care physician as soon as possible for further testing as an outpatient. Return to the emergency department if you experience worsening or uncontrolled chest pain, shortness of breath, lightheadedness, feeling faint, loss of consciousness, nausea, vomiting, or any other concerning symptoms. Prescriptions: No Action doxycycline hyclate 100 mg capsule 100 mg PO BID 7 Days Qty: 14 0RF amoxicillin-pot clavulanate 875-125 mg tablet 1 tab PO BID Qty: 14 0RF
[2023-08-31 07:05] VITALS: PULSE 78
--- NOTE | 2023-08-31 07:18 | PC.NURSE ---
Pt resting on stretcher, snoring loudly. Respirations equal/unlabored.
[2023-08-31 07:54] LABS: Appearance Urine Clear; Color Urine Yellow; Glucose Urine UA Negative (Negative); Leukocyte Esterase Urine Negative (Negative); Nitrite Urine Negative (Negative); Urine Blood Negative (Negative); Urine Ketones Negative (Negative); Urine Protein Trace mg/dL (Neg-Trace)
[2023-08-31 07:58] LABS: Amphetamine Screen Urine Not Detected (Not Detect); Barbiturates, Urine Not Detected (Not Detect); Benzodiazepines Screen Urine Not Detected (Not Detect); Cannabinoid Screen Urine Not Detected (Not Detect); Cocaine Screen Urine POSITIVE (Not Detect); Fentanyl, urine POSITIVE (Not Detect); Opiate Screen Urine POSITIVE (Not Detect); Phencyclidine Screen Urine Not Detected (Not Detect)
[2023-08-31 07:59] LABS: MANUAL DIFF FLAG NO
[2023-08-31 08:03] LABS: Basophils Percent Auto 0.2 % (0-2); Eosinophils Percent Auto 0.4 % (0-4); Hematocrit 37.6 % (42.0-52.0); Hemoglobin 12.4 g/dl (14.0-18.0); Imm Gran Abs Auto 0.03 X10*3/uL (0.00-0.03); Imm Gran Pct Auto 0.3 % (0.0-0.4); Lymphocytes Percent Auto 17.4 % (20-40); Mean Corpuscular Hemoglobin 25.2 pg (27.0-33.0); Mean Corpuscular Volume 76.3 fL (80.0-98.0); Mean Platelet Volume 8.8 fL (9.4-12.4); Monocytes Absolute Auto 0.8 X10*3/uL (0.1-1.2); Monocytes Percent Auto 7.4 % (2-11); Neutrophils Absolute Auto 8.5 x10*3/uL (2.0-8.3); Neutrophils Percent Auto 74.3 % (45-73); Platelet Count 350 X10*3/uL (160-400); Red Blood Count 4.93 X10*6/uL (4.60-5.80); Red Cell Distribution Width 13.5 % (11.0-16.0); White Blood Count 11.4 X10*3/uL (4.8-10.8)
[2023-08-31 08:05] LABS: INTERNATIONAL NORM RATIO 1.1 (0.9-1.1); Prothrombin Time 12.8 SEC (11.1-13.3)
[2023-08-31 08:10] LABS: COVID-19 Test Negative (Negative); IDNOW Serial# 08D9AD1C
[2023-08-31 08:11] LABS: IDNOW Serial# 152EDE1D; Influenza A Negative (Negative); Influenza B2 Negative (Negative)
[2023-08-31 08:14] LABS: Alanine Aminotransferase 17 U/L (0-40); Albumin Level 3.8 g/dL (3.5-5.0); Alkaline Phosphatase 106 U/L (39-117); Anion Gap 13 (12-20); Aspartate Amino Transferase 22 U/L (5-37); Bilirubin Total 0.4 mg/dL (0.0-1.0); Blood Urea Nitrogen 10 mg/dL (9-16); Calcium 9.6 mg/dL (8.4-10.2); Carbon Dioxide 25 mmol/L (22-29); Chloride 103 mmol/L (96-108); Creatinine Clr Calc Pharmacy 149.1; Estimated Glomerular Filt Rate > 60; Glucose Random 109 mg/dL (60-115); Potassium 4.1 mmol/L (3.3-5.1); Sodium 137 mmol/L (135-145); Total Protein 7.9 g/dL (6.5-8.0)
[2023-08-31 08:21] LABS: Troponin-I High Sensitivity < 2.7 ng/L (<3.5-35.0)
--- NOTE | 2023-08-31 09:14 | PC.NURSE ---
Addiction medicine at bedside to evaluate patient.
--- NOTE | 2023-08-31 09:20 | MHC.RECOVRN ---
Met with pt in ED12 after pt requested to speak with recovery. Pt had presented to the ED by EMS for c/o 05/12 radiating CP for a few hours. Pt told EMS he also fell yesterday. Skin christina, dry. Pt medically cleared. Pt laying in bed, eyes closed, wakes to voice. Pt reports using heroin/fentanyl, 3-4 grams daily, IV, as well as cocaine, 3-4 grams daily, IV, last use yesterday. Pt is interested in ATS and is agreeable to any facility. Pt reports tx in the past, unable to verbalize when last ATS admission was. T/w will conduct bedsearch.
--- NOTE | 2023-08-31 11:53 | MHC.RECOVRN ---
Pt accepted to [facility] for 8 pm admission. RAD team and RN aware. Will be transported via [employer].
--- NOTE | 2023-08-31 12:25 | PC.NURSE ---
Pt resting comfortably on stretcher, denies needs. Respirations equal/unlabored.
--- NOTE | 2023-08-31 12:34 | MHC.CARE ---
Rad Team notified Care Team that Lynithin ride to [facility] for 8:00pm bed needed. Care Team will make arrangements.
[2023-08-31 16:00] VITALS: BP 150/80; PULSE 90; RESP 18; TEMP 36.3; O2SAT 98
--- NOTE | 2023-08-31 18:55 | PC.NURSE ---
per care team, pt accepted to [facility] for 8pm after completing intake. nadege booked by care team for pt arrival to [facility]
== END 2023-08-31 19:39 | disposition home or self-care (01) ==
PROVIDERS: Registered Nurse Emergency; Emergency Provider Emergency Medicine
DX: R07.9 Chest pain, unspecified (principal); F19.20 Other psychoactive substance dependence, uncomplicated; Z59.00 Homelessness unspecified; Z11.52 Encounter for screening for COVID-19
CPT/HCPCS: 36415; 71046; 80053; 80307; 81003; 84484; 85025; 85610; 87502; 87635; 93005; 99284; 99285

== ENCOUNTER → 2023-08-31 06:56 | Outpatient (BNV) | payer OTHER, SELFPAY | PROVIDERS: Emergency Provider Emergency Medicine; Visit Provider Internal Medicine Cardiovascular Disease | DX: R07.9 Chest pain, unspecified (principal) | CPT/HCPCS: 93010 ==

== ENCOUNTER 2023-09-14 23:06 | Emergency (ER) | payer OTHER, SELFPAY ==
[2023-09-14 23:20] VITALS: BP 119/63; PULSE 78; RESP 16; TEMP 36.8; O2SAT 97; BMI 23.8
--- NOTE | 2023-09-15 02:13 | ED.GENADULT ---
HPI - General Adult General Chief complaint: Ear Problems Stated complaint: ear pain Time Seen by Provider: 09/15/23 02:07 Source: patient Mode of arrival: ambulatory Limitations: no limitations History of Present Illness HPI narrative: Patient comes to the emergency room complaining of right-sided ear pain. Patient states that he has mild discomfort, but mostly it feels like there is water inside. Patient denies any discharge, no fever chills. Additionally, patient states that he is interested in detox for opiates and especially to stop drinking. Patient denies SI or HI Related Data Previous Rx's Medication Instructions Recorded amoxicillin 875 mg-potassium 1 tab PO BID #14 tabs 08/01/23 clavulanate 125 mg tablet doxycycline hyclate 100 mg capsule 100 mg PO BID 7 days #14 caps 08/01/23 Allergies Allergy/AdvReac Type Severity Reaction Status Date / Time No Known Allergies Allergy Verified 08/31/23 07:52 Review of Systems Review of Systems: Constitutional : No Weight loss, No Fever, No Chills, No Night Sweats, No Fatigue, No Malaise ENT/Mouth : No Hearing loss, complaining of right-sided ear pain and fullness, No Nasal Congestion, No Sinus Pain, No Hoarseness, No sore throat, No Rhinorrhea, No Swallowing Difficulty Eyes: No Eye Pain, No Swelling, No Redness, No Foreign Body, No Discharge, No Vision Changes Cardiovascular : No Chest Pain, No SOB, No Dyspnea on Exertion, No Orthopnea, No Edema, No Palpitations Respiratory : No Cough, No Sputum, No Wheezing, No Smoke Exposure, No Dyspnea Gastrointestinal : No Nausea, No Vomiting, No Diarrhea, No Constipation, No abdominal Pain, No Hematochezia, No Melena Genitourinary : no irregular bleeding, No Dysuria, No Urinary Frequency, No Hematuria, No Urinary Incontinence, No Urgency, No Flank Pain, No Urinary Flow Changes, No Hesitancy Musculoskeletal : No joint pain, No Myalgias, No Joint Swelling Skin : No Skin Lesions, No rash Neuro : No Weakness, No Numbness, No Paresthesias, No Loss of Consciousness, No Dizziness, No Headache Psych : No Anxiety/Panic, No Depression, No SI/HI/AH/VH, admits to drug abuse and alcohol abuse, wants detox Heme/Lymph: No Bruising, No Bleeding,No Lymphadenopathy Endocrine : No Polyuria, No Polydipsia, No Temperature Intolerance [facility] Past Medical History Medical History Polysubstance abuse Social History Social History Unable to assess alcohol history related to: Refusing to respond Alcohol intake: never Patient Tobacco Use Status: Tobacco use Unknown Substance Use Type: Crack/Cocaine and Other Physical Exam ED Vital Signs: Vital Signs - 24 hr 09/14/23 23:20 Temperature 98.2 F Pulse Rate 78 Respiratory Rate 16 Blood Pressure 119/63 Pulse Oximetry 97 Oxygen Delivery Method Room Air BMI result Body Mass Index 23.8 Const Other: Appearance: Alert. Oriented X3. No acute distress. Disheveled Eyes: Pupils equal, round and reactive to light. ENT: Pharynx normal. Both ears within normal limits, tympanic membranes clear Neck: Normal inspection. Neck supple. No lymph nodes noted. No crepitus CVS: Normal heart rate and rhythm. Pulses normal. Normal S1 and S2 Respiratory: No respiratory distress. Breath sounds normal. No Wheezing. No rales Abdomen: Soft and nontender. No rigidity. No distention. Skin: Skin warm and dry. Normal skin color. Normal skin turgor. Extremities: No lower extremity edema. No Lacerations. No Rash Neuro: Oriented X 3. No motor deficit. No sensory deficit. Moving all extremities. No slurred speech. CN 2 through 12 grossly intact Psych: calm, cooperative, normal affect Course Course Course Narrative: -patient is awake, alert, calm, cooperative. Patient states that he is very interested in stopped drinking and using drugs. Patient will be staying until tomorrow, waiting to be seen by the care team or leadership coach. - Medical Decision Making Medical Decision Making MDM Narrative: Patient not on a Section 12 Care team consult pending -physician observation started at 02:17 Differential Diagnosis Differential Diagnoses: The differential diagnosis associated with the presentation includes (Otitis media, otalgia. Polysubstance abuse, alcohol abuse, alcohol dependence) Admission/Observation Consideration of admission/observation: Escalation of care including admission/observation considered (Patient waiting to be seen by the care team) Critical Care Time Critical Care Time Critical Care Time: No Discharge Plan Discharge Clinical Impression: Polysubstance (including opioids) dependence, daily use, Otalgia Patient Disposition: Still a Patient Prescriptions: No Action doxycycline hyclate 100 mg capsule 100 mg PO BID 7 Days Qty: 14 0RF amoxicillin-pot clavulanate 875-125 mg tablet 1 tab PO BID Qty: 14 0RF
[2023-09-15 02:46] LABS: Basophils Percent Auto 0.3 % (0-2); Eosinophils Absolute Auto 0.2 X10*3/uL (0.0-0.4); Eosinophils Percent Auto 2.8 % (0-4); Hematocrit 33.5 % (42.0-52.0); Hemoglobin 10.6 g/dl (14.0-18.0); Imm Gran Abs Auto 0.01 X10*3/uL (0.00-0.03); Imm Gran Pct Auto 0.1 % (0.0-0.4); Lymphocytes Absolute Auto 2.4 X10*3/uL (1.2-4.9); Lymphocytes Percent Auto 31.3 % (20-40); MANUAL DIFF FLAG NO; Mean Corpuscular HGB Conc 31.6 g/dl (31.0-36.0); Mean Corpuscular Hemoglobin 24.7 pg (27.0-33.0); Mean Corpuscular Volume 77.9 fL (80.0-98.0); Mean Platelet Volume 8.9 fL (9.4-12.4); Monocytes Absolute Auto 0.9 X10*3/uL (0.1-1.2); Monocytes Percent Auto 11.3 % (2-11); Neutrophils Absolute Auto 4.1 x10*3/uL (2.0-8.3); Neutrophils Percent Auto 54.2 % (45-73); Platelet Count 343 X10*3/uL (160-400); Red Cell Distribution Width 13.2 % (11.0-16.0); White Blood Count 7.6 X10*3/uL (4.8-10.8)
[2023-09-15 03:06] LABS: Alanine Aminotransferase 14 U/L (0-40); Albumin Level 3.6 g/dL (3.5-5.0); Alkaline Phosphatase 91 U/L (39-117); Anion Gap 15 (12-20); Aspartate Amino Transferase 20 U/L (5-37); Bilirubin Direct 0.2 mg/dL (0.0-0.5); Bilirubin Total 0.2 mg/dL (0.0-1.0); Blood Urea Nitrogen 12 mg/dL (9-16); Calcium 8.9 mg/dL (8.4-10.2); Carbon Dioxide 28 mmol/L (22-29); Chloride 104 mmol/L (96-108); Creatinine Clr Calc Pharmacy 142.6; Estimated Glomerular Filt Rate > 60; Ethanol < 10 mg/dL; Glucose Random 107 mg/dL (60-115); Potassium 4.3 mmol/L (3.3-5.1); Sodium 143 mmol/L (135-145); Total Protein 7.2 g/dL (6.5-8.0)
[2023-09-15 06:27] VITALS: BP 124/75; PULSE 58; RESP 14; TEMP 36.4; O2SAT 99
--- NOTE | 2023-09-15 12:09 | PC.NURSE ---
pt met with marketing systems manager concerning detox placement
--- NOTE | 2023-09-15 16:15 | MHC.RECOVRN ---
Met with pt in ER cuellar bed 22 after consult placed to Addiction Medicine by care team for Detox search. Pt had presented to the ED from the community states he is currently unhoused and living [address] in [place]. Pt laying in bed, needing much verbal encouragment to answer questions, not very talkative, just stating I want to go to detox not cooperating with questions regarding use. Pt reports fentanyl use, unsure how muc dailyh, 2 bags yesterday was his response. Pt was given detox information, and bus passes along with instructions to [facility]. Discussed with Thais Moy APRN.??
== END 2023-09-15 14:00 | disposition home or self-care (01) ==
PROVIDERS: Emergency Provider Emergency Medicine
DX: H92.01 Otalgia, right ear (principal); F11.20 Opioid dependence, uncomplicated; Z79.899 Other long term (current) drug therapy
CPT/HCPCS: 36415; 80048; 80076; 80307; 85025; 99284

== ENCOUNTER 2023-10-10 17:09 | Emergency (ER) | payer MEDICAID, SELFPAY ==
[2023-10-10 17:21] VITALS: BP 149/97; PULSE 93; RESP 18; TEMP 36; O2SAT 98; BMI 21.7
--- NOTE | 2023-10-10 17:21 | ED.GENADULT ---
HPI - General Adult General Chief complaint: Psychiatric Symptoms Stated complaint: Crisis Time Seen by Provider: 10/10/23 17:59 Source: patient Mode of arrival: ambulatory Limitations: no limitations History of Present Illness HPI narrative: Patient is a 43 year old assigned male at with a history of polysubstance abuse presenting to the emergency department today with vague SI. Patient states that he wants help for his mental problems and sometimes he feels like harming himself but doesn't have a specific plan. Patient denies any dizziness, lightheadedness, abdominal pain, nausea, vomiting, fever, chills, blurry vision, double vision, loss of vision, chest pain, difficulty breathing, shortness of breath, back pain, night sweats, pain with urination, increased urinary frequency, increased urinary urgency, blood in his urine or stool, syncope or a near syncopal episode, recent trauma or falls, bowel incontinence, bladder incontinence, bowel retention, bladder retention, or any other complaints at this time. Relieving factors: none Exacerbating factors: none Associated symptoms: denies other symptoms Treatments prior to arrival: none Related Data Home Medications Medication Instructions Recorded Confirmed No Known Home Meds 10/10/23 10/10/23 Allergies Allergy/AdvReac Type Severity Reaction Status Date / Time No Known Allergies Allergy Verified 10/10/23 17:21 Review of Systems Constitutional: Constitutional: Reports no additional constitutional complaints, Denies chills, Denies fever(s) and Denies night sweats Eyes: Eyes: Reports no additional eye complaints, Denies blurry vision, Denies change in vision, Denies diplopia, Denies eye discharge, Denies loss of vision and Denies eye pain ENT: Denies dizziness Cardiovascular: Cardiovascular: Reports no additional cardiovascular complaints, Denies chest pain, Denies lightheadedness, Denies Loss of Consciousness and Denies dyspnea Respiratory: Respiratory: Reports no additional respiratory complaints and Denies dyspnea Gastrointestinal: Gastrointestinal: Reports no additional gastrointestinal complaints, Denies abdominal pain, Denies melena, Denies hematochezia, Denies change in bowel habits and Denies change in stool character Genitourinary: Genitourinary: Reports no additional male genitourinary complaints, Denies hematuria, Denies oliguria, Denies difficulty urinating, Denies dysuria, Denies urinary frequency, Denies urinary hesitancy, Denies urinary incontinence and Denies urinary urgency Musculoskeletal: Musculoskeletal: Reports no additional musculoskeletal complaints, Denies numbness and Denies tingling Neurologic: Denies dizziness, Denies loss of vision, Denies numbness and Denies tingling Psychiatric: Psychiatric: Reports suicidal ideation (vague, transient) Endocrine: Endocrine: Reports no additional endocrine complaints Hematologic/Lymphatic: Hematologic/Lymphatic: Reports no additional hematologic/lymphatic complaints Allergic/Immunologic: Allergic/Immunologic: Reports no additional allergic/immunologic complaints PMFSH Past Medical History Attestation statement: The following information was validated with the patient. Source: old records reviewed and nursing notes reviewed Medical History Polysubstance abuse Social History Social History Unable to assess alcohol history related to: Refusing to respond Alcohol intake: current Alcohol intake frequency: 3 or more drinks per day Alcohol type: beer Patient Tobacco Use Status: Tobacco use Unknown Smoked in Last 30 Days: Yes Use of substances other than those prescribed or required for medical reasons: Yes Substance Use Type: Crack/Cocaine, Heroin and IV Drugs Substance Use Frequency: Chronic Longstanding Last Used Substance: Just Prior to Admission Advance Directives: No Advance Directives Information Provided: No Physical Exam ED Vital Signs: Vital Signs - 24 hr 10/11/23 06:42 10/11/23 09:46 Temperature 98.2 F 97.6 F Pulse Rate 60 60 Respiratory Rate 17 18 Blood Pressure 123/76 129/80 Pulse Oximetry 97 98 Oxygen Delivery Method Room Air BMI result Body Mass Index 21.7 Const General: cooperative, no acute distress, alert and awake Nutritional Appearance: well nourished Orientation/consciousness: patient oriented x3 Limitations: no limitations [facility] Head: Yes normal to inspection and Yes atraumatic Ears: hearing grossly normal bilaterally and external ears normal General nose exam: Normal external nose present, no nasal discharge noted and no epistaxis Face and sinus: Yes normal facial exam, No abrasion and No laceration Mouth: Normal oral and palatal mucosa present, no drooling and no muffled voice Eyes General: appearance normal, both eyes and all related structures Periorbital: periorbital findings normal Eyelids: Yes eyelids normal Conjunctivae: conjunctivae normal Pupils: Equal, round and reactive pupils present EOM: EOMs intact bilaterally Neck Neck: Yes normal visual inspection, Yes full ROM and Yes no lymphadenopathy Chest Chest palpation & inspection: normal inspection of the chest Resp Effort & Inspection: normal respiratory effort and able to speak in complete sentences GI Inspection: Yes normal to inspection Neuro General: patient oriented x3 and moves all extremities Cranial nerves: Yes Equal, round and reactive pupils present Cognition (Neuro): normal cognition Motor exam (neuro): 5/5 motor strength present throughout Sensory Exam: Normal double simultaneous stimulation for sensation Coordination: [id number] test normal Extrem General: Yes normal to inspection, Yes full ROM and Yes capillary refill normal Psych Appearance: grossly normal Mental Status: mental status grossly normal Thought process: Normal thought process present Thought content: Suicidality present Course Course Course Narrative: This is a rapid medical exam: Additional HPI, ROS, PE not included below will be deferred to primary provider. Patient is a 43-year-old male with history of polysubstance use presenting to the ED requesting assistance with detox. States he has almost overdosed recently. Has been using fentanyl, cocaine, and alcohol. 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 Also reports anxiety and suicidal ideation without specific plan. Denies homicidal ideation. Plan: med clearance, CARE team mark, addiction medicine Reevaluation(s) Reevaluation #1: Denies SI/HI/AVH, wants detox. Pt not greatly compliant with interview. Referred to Recovery/Addiction Medicine. Time: 08:43 Medications Administered Discontinued Medications Generic Name Dose Route Start Last Admin Trade Name Rajeev PRN Reason Stop Dose Admin Methadone HCl 30 mg 10/11/23 09:36 10/11/23 09:58 Methadone Hcl 20 Mg/2 Ml Oral.Conc PO 10/11/23 09:37 Not Given ONCE ONE Medical Decision Making Medical Decision Making MDM Narrative: Patient is a 43 year old assigned male at with a history of polysubstance abuse presenting to the emergency department today requesting help for his mental problems. Patient's physical exam was unremarkable. Patient's blood work was unremarkable. I explained my physical exam findings as well as all test results to the patient. I answered all questions asked by the patient. Patient is currently awaiting evaluation by CARE team. Patient's disposition will be determined after CARE team evaluation. Physician observation begins at 2249. -20:20 I was informed by the patient's nurse that the patient no longer wants to wait for placement. Patient is a bed search at this time. I spoke to the patient, patient denies suicidal or homicidal ideation, patient will likely be discharged. I also spoke with the care team, patient is not on a Section 12, initially patient voice vague suicidal ideation, but denied SI to them as well. Care team is okay to discharge the patient as well. Differential Diagnosis Differential Diagnoses: The differential diagnosis associated with the presentation includes Suicidal ideation Crisis Polysubstance use Admission/Observation Consideration of admission/observation: Escalation of care including admission/observation considered Patient's disposition will be determined after CARE team evaluation. Lab Data [facility] Lab Attestation statement: I reviewed the patient's lab results. My interpretation of these results are in the [facility] Rationale portion of this note. 10/10/23 Unknown 10/10/23 Unknown Labs: Lab Results 10/10/23 10/10/23 Range/Units 18:25 Unknown WBC 8.0 (4.8-10.8) X10*3/uL RBC 5.05 (4.60-5.80) X10*6/uL Hgb 12.4 L (14.0-18.0) g/dl Hct 39.5 L (42.0-52.0) % MCV 78.2 L (80.0-98.0) fL MCH 24.6 L (27.0-33.0) pg MCHC 31.4 (31.0-36.0) g/dl RDW 13.8 (11.0-16.0) % Plt Count 341 (160-400) X10*3/uL MPV 8.7 L (9.4-12.4) fL Immature Gran % (Auto) 0.1 (0.0-0.4) % Neut % (Auto) 60.8 (45-73) % Lymph % (Auto) 30.3 (20-40) % [place] % (Auto) 7.1 (2-11) % Eos % (Auto) 1.3 (0-4) % Baso % (Auto) 0.4 (0-2) % Lymph # (Auto) 2.4 (1.2-4.9) X10*3/uL [place] # (Auto) 0.6 (0.1-1.2) X10*3/uL Eos # (Auto) 0.1 (0.0-0.4) X10*3/uL Baso # (Auto) 0.0 (0.0-0.2) X10*3/uL Abs Immat Gran (auto) 0.01 (0.00-0.03) X10*3/uL Absolute Neuts (auto) 4.9 (2.0-8.3) x10*3/uL Absolute Nucleated RBC 0.000 (0.0-0.012) X10*3/uL Nucleated RBC % (auto) 0.0 (0.0-0.2) /100WBC Sodium 146 H (135-145) mmol/L Potassium 4.0 (3.3-5.1) mmol/L Chloride 109 H (96-108) mmol/L Carbon Dioxide 26 (22-29) mmol/L Anion Gap 15 (12-20) BUN 20 H (9-16) mg/dL Creatinine 0.85 (0.5-1.4) mg/dL Estim Creat Clear Calc 128.0 Estimated GFR > 60 Random Glucose 94 (60-115) mg/dL Calcium 9.4 (8.4-10.2) mg/dL Total Bilirubin 0.3 (0.0-1.0) mg/dL AST 23 (5-37) U/L ALT 18 (0-40) U/L Alkaline Phosphatase 100 (39-117) U/L Total Protein 8.2 H (6.5-8.0) g/dL Albumin 4.3 (3.5-5.0) g/dL Urine Color Dark Yellow Urine Appearance Clear Urine pH 5.5 (5.0-9.0) Ur Specific [place] >= 1.030 H (1.005-1.025) Urine Protein 30 (1+) H (Neg-Trace) mg/dL Urine Glucose (UA) Negative (Negative) mg/dL Urine Ketones Negative (Negative) mg/dL Urine Blood Negative (Negative) Urine Nitrite Negative (Negative) Ur Leukocyte Esterase Negative (Negative) Urine RBC 0-2 (0-2) /HPF Urine WBC 0-5 (0-5) /HPF Ur Squamous Epith Cells 0-2 (0-2) /HPF Urine Bacteria None Seen (None Seen) Hyaline Casts 0-2 (0-2) /LPF Urine Opiates Screen POSITIVE H (Not Detect) Urine Fentanyl Screen POSITIVE H (Not Detect) Ur Barbiturates Screen Not Detected (Not Detect) Ur Phencyclidine Scrn Not Detected (Not Detect) Ur Amphetamines Screen Not Detected (Not Detect) U Benzodiazepines Scrn POSITIVE H (Not Detect) Urine Cocaine Screen POSITIVE H (Not Detect) U Marijuana (THC) Screen Not Detected (Not Detect) Ethyl Alcohol < 10 mg/dL COVID-19 (GEORGE) Negative (Negative) COVID-19 Clin Com See Note Independent Interpretation I performed an independent interpretation of an: EKG Interpretation: Vent. Rate: 076 BPM Atrial Rate: 076 BPM P-R Int: 150 ms QRS Dur: 076 ms QT Int: 386 ms P-R-T Axes: 026 043 028 degrees QTc Int: 434 ms Normal sinus rhythm Minimal voltage criteria for LVH, may be normal variant (Sokolow-Grimes) Borderline ECG 10/10/23 1730 Critical Care Time Critical Care Time Critical Care Time: Yes Total Critical Care Time: 40 Attestation: I spent 40 minutes of Critical Care Time with this patient. This does not include time spent on separately reported billable procedures. Discharge Plan Discharge Clinical Impression: Polysubstance (including opioids) dependence, daily use Patient Disposition: Home, Self-Care Instructions: Polysubstance Abuse (ED) Additional Instructions: You were discharged per your request. Please follow-up with your primary care physician tomorrow. If you have any worsening or new symptoms, please return to the emergency room or call 911 Prescriptions: No Action No Known Home Meds Interventions: [place]-Suicide Risk Severity Scale Last Done: 10/11/23 18:00
--- NOTE | 2023-10-10 17:23 | ECG_ITS ---
Test Reason : MEDICAL CLEARANCE Blood Pressure : / mmHG Vent. Rate : 076 BPM Atrial Rate : 076 BPM P-R Int : 150 ms QRS Dur : 076 ms QT Int : 386 ms P-R-T Axes : 026 043 028 degrees QTc Int : 434 ms Normal sinus rhythm Minimal voltage criteria for LVH, may be normal variant ( Sokolow-Grimes ) Borderline ECG When compared with ECG of 31-AUG-2023 06:56, No significant change was found Referred By: Teresa Pacheco Electronically Signed By:GIOVANNI MELENDEZ MD
[2023-10-10 17:43] LABS: MANUAL DIFF FLAG NO
[2023-10-10 17:45] LABS: Basophils Percent Auto 0.4 % (0-2); Eosinophils Absolute Auto 0.1 X10*3/uL (0.0-0.4); Eosinophils Percent Auto 1.3 % (0-4); Hematocrit 39.5 % (42.0-52.0); Hemoglobin 12.4 g/dl (14.0-18.0); Imm Gran Abs Auto 0.01 X10*3/uL (0.00-0.03); Imm Gran Pct Auto 0.1 % (0.0-0.4); Lymphocytes Absolute Auto 2.4 X10*3/uL (1.2-4.9); Lymphocytes Percent Auto 30.3 % (20-40); Mean Corpuscular HGB Conc 31.4 g/dl (31.0-36.0); Mean Corpuscular Hemoglobin 24.6 pg (27.0-33.0); Mean Corpuscular Volume 78.2 fL (80.0-98.0); Mean Platelet Volume 8.7 fL (9.4-12.4); Monocytes Absolute Auto 0.6 X10*3/uL (0.1-1.2); Monocytes Percent Auto 7.1 % (2-11); Neutrophils Absolute Auto 4.9 x10*3/uL (2.0-8.3); Neutrophils Percent Auto 60.8 % (45-73); Platelet Count 341 X10*3/uL (160-400); Red Blood Count 5.05 X10*6/uL (4.60-5.80); Red Cell Distribution Width 13.8 % (11.0-16.0)
[2023-10-10 17:58] VITALS: PULSE 91; RESP 14; O2SAT 97
--- NOTE | 2023-10-10 18:01 | PC.NURSE ---
pt presents to the ED, requesting help with drug use. He reports he has been shooting up for multiple days in a row now, and due to this he has been having increasingly suicidal thoughts. He denies any specific plan but states with the way I am going with these drugs, I am going to OD . Pt is calm and cooperative, offering no complaints currently. 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 Pt ambulating with steady gait, respirations even and unlabored, in no apparent distress at this time
[2023-10-10 18:03] LABS: Alanine Aminotransferase 18 U/L (0-40); Albumin Level 4.3 g/dL (3.5-5.0); Alkaline Phosphatase 100 U/L (39-117); Anion Gap 15 (12-20); Aspartate Amino Transferase 23 U/L (5-37); Bilirubin Total 0.3 mg/dL (0.0-1.0); Blood Urea Nitrogen 20 mg/dL (9-16); Calcium 9.4 mg/dL (8.4-10.2); Carbon Dioxide 26 mmol/L (22-29); Chloride 109 mmol/L (96-108); Estimated Glomerular Filt Rate > 60; Ethanol < 10 mg/dL; Glucose Random 94 mg/dL (60-115); Sodium 146 mmol/L (135-145); Total Protein 8.2 g/dL (6.5-8.0)
[2023-10-10 18:20] LABS: COVID-19 Test Negative (Negative); IDNOW Serial# 08D9AD1C
--- NOTE | 2023-10-10 18:20 | PC.NURSE ---
RE: med rec Pt verbalizes having no home medications
[2023-10-10 18:31] LABS: Appearance Urine Clear; Color Urine Dark Yellow; Glucose Urine UA Negative (Negative); Leukocyte Esterase Urine Negative (Negative); Nitrite Urine Negative (Negative); PH 5.5 (5.0-9.0); Specific Gravity - Urine >= 1.030 (1.005-1.025); UMIC TRIGGER UACC YES; Urine Blood Negative (Negative); Urine Ketones Negative (Negative); Urine Protein 30 (1+) mg/dL (Neg-Trace)
[2023-10-10 18:36] LABS: Bacteria Urine None Seen (None Seen); Hyaline Casts Urine 0-2 /LPF (0-2); RBC Urine 0-2 /HPF (0-2); Squamous Epithelial Cell Urine 0-2 /HPF (0-2); WBC Urine 0-5 /HPF (0-5)
--- NOTE | 2023-10-10 19:30 | PC.NURSE ---
Assumed care of PT at 1915. PT moved to 6h due to smoke in pod. Sitter at bedside
--- NOTE | 2023-10-10 19:36 | ECG_ITS ---
Test Reason : MED CLEARANCE Blood Pressure : / mmHG Vent. Rate : 075 BPM Atrial Rate : 075 BPM P-R Int : 164 ms QRS Dur : 080 ms QT Int : 398 ms P-R-T Axes : 072 049 041 degrees QTc Int : 444 ms Normal sinus rhythm Minimal voltage criteria for LVH, may be normal variant ( Sokolow-Grimes ) Borderline ECG When compared with ECG of 10-OCT-2023 17:30, No significant change was found Referred By: Joan Flannery Electronically Signed By:GIOVANNI MELENDEZ MD
--- NOTE | 2023-10-10 20:20 | PC.NURSE ---
Pt moved back to pod from main ED.
[2023-10-10 20:24] LABS: Amphetamine Screen Urine Not Detected (Not Detect); Barbiturates, Urine Not Detected (Not Detect); Benzodiazepines Screen Urine POSITIVE (Not Detect); Cannabinoid Screen Urine Not Detected (Not Detect); Cocaine Screen Urine POSITIVE (Not Detect); Fentanyl, urine POSITIVE (Not Detect); Opiate Screen Urine POSITIVE (Not Detect); Phencyclidine Screen Urine Not Detected (Not Detect)
--- NOTE | 2023-10-10 21:48 | MHC.CARE ---
CARE Team attempted to meet with the pt but he was sleeping, hard. T/W was able to rouse the pt but the pt requested to be seen later on this evening due to being so tired. According to the MHT the pt was falling asleep while standing and watching the tv. T/W will attempt to meet with the pt again in a few hours.
[2023-10-11 06:42] VITALS: BP 123/76; PULSE 60; RESP 17; TEMP 36.8; O2SAT 97
--- NOTE | 2023-10-11 07:26 | PC.NURSE ---
Assumed care of patient at 0650, patient appears to be sleeping, respirations even and unlabored, no apparent distress noted. Patient has not been evaluated by CARE team at this time
--- NOTE | 2023-10-11 09:32 | MHC.CARE ---
Patient was seen CARE team for crisis assessment due to passive suicidal thoughts. Patient denies suicidal ideation plan or intent and is requesting detox for substance use treatment. Patient denies any history of suicide attempts or self harming behaviors a will be referred to hospital recovery team for detox bed search.
[2023-10-11 09:36] VITALS: PULSE 55
--- NOTE | 2023-10-11 09:42 | PC.NURSE ---
nursing services manager met with patient regarding detox options. Methadone was discussed with patient and provider. COWS score completed (3)
[2023-10-11 09:46] VITALS: BP 129/80; PULSE 60; RESP 18; TEMP 36.4; O2SAT 98
--- NOTE | 2023-10-11 09:58 | PC.NURSE ---
Due to patient's COWS score being 3, HR being 55 and patient being asleep (no apparent distress, respirations even and unlabored), will hold off on methadone. This was discussed with Dr. Flannery who is in agreement with plan at this time
--- NOTE | 2023-10-11 10:16 | MHC.RECOVRN ---
Addendum entered by Radha Gamboa RN 10/11/23 12:48: Correction to radha Dr's name Should read Prudencio. Original Note: At approx 9:30AM this inspector automatic typewriter went to meet with pt. per request of provider for pt requesting detox bed. Upon meeting with the pt. he reported he is using IV heroin daily and last use was yesterday prior to admission having used 5-6 grams. Pt also reprots using whiskey yesterday 1-2 pints but was unable to give a history of drinking patterns. Upon assessment pt was agitated pulling the covers over his eyes and short with answers. He did state he wanted to go to detox and that he would go anywhere . I asked pt how he was feeling and he reported to me that he had body aches, I observed a stuffy and runny nose and his face looked moist. I reached out to logistics supervisor Thais Moy with this report and her recommendations were communicated to Dr. garcia-Dr. Hernandez and nurse Andreea. Decision was made to hold recommendation of methadone 30mg at this time due to the most recent COWS score of a 3. T/W initiated bed search. [facility]-no answer; [facility]-no beds; [facility]-no answer; [facility]-left message; [facility]-left message; [facility] placed on wait list and referral faxed. [facility]-walk in only. I updated pt's nurse Doran and care team with this information and requested notification if pt. being D/C so I could provide him with f/u information.
--- NOTE | 2023-10-11 14:27 | MHC.RECOVRN ---
T/W brought outpatient and ATS resources ot pt. During my visit I was informed by nurse Andreea that pt. is now a dual dx bed search. Left resources with pt. and he was eating lunch and comfortable.
--- NOTE | 2023-10-11 17:32 | MHC.CARE ---
RAD Team conducted dual dx bedsearch, no beds were available. bed search is exhausted and will continue tomorrow
--- NOTE | 2023-10-11 19:18 | PC.NURSE ---
patient appears to remain at rest at present respirations are even and unlabored patient appears in no distress
--- NOTE | 2023-10-11 20:02 | PC.NURSE ---
maria alejandra asks to leave, told clinician, clinician states hell have to see him again and then client gets increasingly argumentative you cant keep me here explained situation to client where he may need to be seen by provider if he said he came here because he felt unsafe. asked provider to come and assess client for dc.
--- NOTE | 2023-10-11 20:30 | PC.NURSE ---
patient declined to return our pants prior to dc
== END 2023-10-11 20:36 | disposition home or self-care (01) ==
PROVIDERS: Registered Nurse Emergency; Emergency Provider Emergency Medicine Emergency Medical Services
DX: F19.20 Other psychoactive substance dependence, uncomplicated (principal)
CPT/HCPCS: 80053; 80307; 81001; 85025; 87635; 93005; 99285; S9485

== ENCOUNTER → 2023-10-10 17:23 | Outpatient (BNV) | payer MEDICAID, SELFPAY | PROVIDERS: Emergency Provider Emergency Medicine Emergency Medical Services; Visit Provider Internal Medicine Cardiovascular Disease | DX: Z01.818 Encounter for other preprocedural examination (principal) | CPT/HCPCS: 93010 ==

== ENCOUNTER 2023-10-12 00:55 | Emergency (ER) | payer MEDICAID, SELFPAY ==
[2023-10-12 00:55] VITALS: BP 169/105; PULSE 91; RESP 18; TEMP 36.8; O2SAT 99; BMI 22.5
[2023-10-12 05:52] VITALS: BP 121/72; PULSE 78; RESP 17; TEMP 36.8; O2SAT 95
--- NOTE | 2023-10-12 07:20 | ED_ITS ---
HPI - Extremity Problem General Chief complaint: Extremity Injury, Upper Stated complaint: gen med Time Seen by Provider: 10/12/23 06:58 Source: patient and RN notes reviewed Mode of arrival: ambulatory Limitations: no limitations History of Present Illness HPI Narrative: This is a 43 [id number], with a history of polysubstance abuse, presenting to the ER with complaints of bilateral hand pain x 1 week. Pt states that about 2 weeks ago he accidentally lacerated his right third finger, unsure on what, and is concerned as it is taking longer to heal. He reports that his hands feel swollen and painful. He reports his tetanus is up-to-date. He reports IVDA, but does not inject in his hands. He denies any fevers, chills, chest pain, shortness of breath, abdominal pain, nausea, vomiting or diarrhea. He states that he is currently homeless and is living [address] States that currently uses approximately 4-6 bundles of IV heroin/fentanyl, as well as 5 g of cocaine daily. He has been using intravenously for the last 6 months. He also endorses cocaine use. He expresses interest in seeking detox at this time. States that he drinks 1-2 beers per day, denies history of alcohol withdrawal seizures. No other complaints or concerns at this time. Complaint: extremity pain, joint swelling and joint pain Onset (ago): week(s) Pain Consistency: constant Location: left and right Quality: aching Radiation: none Relieving factors: nothing Exacerbating factors: nothing Associated symptoms: shortness of breath Related Data Previous Rx's Medication Instructions Recorded emollient combination no.119 1 appl topical DAILY 4 weeks #454 10/12/23 (Eucerin Advanced Repair topical grams cream) amoxicillin 875 mg-potassium 1 tab PO BID 5 days #10 tabs 10/13/23 clavulanate 125 mg tablet Allergies Allergy/AdvReac Type Severity Reaction Status Date / Time No Known Allergies Allergy Verified 10/12/23 00:59 Review of Systems Review of Systems: Yes all other systems are reviewed and are negative Constitutional: Constitutional: Reports as per [facility] Past Medical History Attestation statement: The following information was validated with the patient. Medical History Polysubstance abuse Social History Social History Unable to assess alcohol history related to: Refusing to respond Alcohol intake: current Alcohol intake frequency: holidays/special occasions only Alcohol type: beer Patient Tobacco Use Status: Tobacco use Unknown Substance Use Type: Crack/Cocaine and Heroin Advance Directives: No Advance Directives Information Provided: No Physical Exam Vital Signs: Vital Signs: Last Vital Signs Temp 97.6 F 10/12/23 13:17 Pulse 64 10/12/23 13:17 Resp 16 10/12/23 13:17 BP 108/68 10/12/23 13:17 Pulse Ox 97 10/12/23 13:17 O2 Del Method Room Air 10/12/23 13:17 BMI result Body Mass Index 22.5 Const: General: cooperative, comfortable and no acute distress Orientation/consciousness: patient oriented x3 Limitations: no limitations HEENT: Head: Yes normal to inspection, Yes normocephalic and Yes atraumatic Ears: hearing grossly normal bilaterally General nose exam: Normal external nose present Face and sinus: Yes normal facial exam Mouth: Normal oral and palatal mucosa present, oropharynx normal and moist mucous membranes Throat: Yes posterior oropharynx normal Eyes: General: appearance normal, both eyes and all related structures Eyelids: Yes eyelids normal Conjunctivae: conjunctivae normal Sclerae: sclerae normal Pupils: Equal, round and reactive pupils present EOM: EOMs intact bilaterally Neck: Neck: Yes normal visual inspection, Yes full ROM and Yes no lymphadenopathy Lymphatic: no lymphadenopathy noted Chest: Chest palpation & inspection: normal inspection of the chest Resp: Effort & Inspection: normal respiratory effort and able to speak in complete sentences Auscultation: clear to auscultation bilaterally, no crackles, no rales, no rhonchi and no wheezes Cardio: Rate: regular rate Rhythm: regular rhythm Heart sounds: S1 normal heart sound present and S2 normal heart sound present GI: Inspection: Yes normal to inspection Skin: General skin exam: no rashes or lesions noted Trauma: no lacerations or abrasions Wounds: no wounds Neuro: General: patient oriented x3 and moves all extremities Cranial nerves: Yes Equal, round and reactive pupils present Extrem: Other: Bilateral hands are nonerythematous, nonedematous, no increased warmth with dry, cracked skin. He has a healing chronic wound noted to his right third PIP without any surrounding erythema or warmth. Full ROM. Strong radial pulse. General: Yes normal to inspection Right upper extremity: normal to inspection Left upper extremity: normal to inspection Right lower extremity: normal to inspection Left lower extremity: normal to inspection Course Reevaluation(s) Reevaluation #1: Patient was seen by the recovery team, patient expresses wishes to go to detox at this time. No SI/HI Detox bed search initiated. Patient remained stable, comfortable, eating and drinking without difficulty. Patient's you tox positive for opiates, fentanyl, and cocaine. Urine does not appear to be infected. Vitals remained stable, patient is afebrile. Physician observation initiated. Time: 10:54 Reevaluation #2: Pt left the ER without seeing the recovery team. Medical Decision Making Medical Decision Making MDM Narrative: This is a 12-upik-dfh-male, with hx of polysubstance abuse, presenting to the emergency department with complaints of bilateral hand pain. On arrival, pt's vitals are stable. Bilateral hands with no evidence erythema, edema increased warmth. Does not appear to be cellulitic. Hands appear to be dry, and skin is cracking, likely the source of his pain. Given he is homeless, exposure to the elements is likely contributing to his pain as well. Will discharge patient with Eucerin to help with cracked skin. Also encouraged to were covering on his hands whenever he is outdoors. Given no evidence of infection, will defer blood work at this time. He is requesting detox at this time [facility]. Plan: recovery services Differential Diagnosis Differential Diagnoses: The differential diagnosis associated with the presentation includes cellulitis, abscess, contact dermatitis, laceration, IVDA, substance abuse Lab Data Labs: Lab Results 10/12/23 Range/Units 09:15 Urine Color Yellow Urine Appearance Clear Urine pH 6.0 (5.0-9.0) Ur Specific [place] 1.025 (1.005-1.025) Urine Protein Negative (Neg-Trace) mg/dL Urine Glucose (UA) Negative (Negative) mg/dL Urine Ketones Negative (Negative) mg/dL Urine Blood Negative (Negative) Urine Nitrite Negative (Negative) Ur Leukocyte Esterase Negative (Negative) Urine Opiates Screen POSITIVE H (Not Detect) Urine Fentanyl Screen POSITIVE H (Not Detect) Ur Barbiturates Screen Not Detected (Not Detect) Ur Phencyclidine Scrn Not Detected (Not Detect) Ur Amphetamines Screen Not Detected (Not Detect) U Benzodiazepines Scrn Not Detected (Not Detect) Urine Cocaine Screen POSITIVE H (Not Detect) U Marijuana (THC) Screen Not Detected (Not Detect) Radiology Impression Discussion of test interpretation with radiology: I have reviewed the radiologist's reading. External Record Review External record reviewed: Inpatient record, Office record, Outpatient record, Prior outpatient labs, Prior outpatient radiology, Primary care record and Outside ED record Discharge Plan Discharge Clinical Impression: Bilateral hand pain, Polysubstance (including opioids) dependence, daily use Patient Disposition: Still a Patient Instructions: Arthralgia (ED) Additional Instructions: You were seen in the ER due to hand pain. The skin on your hands are very dry - likely causing you to have your pain. Please use topical creams to hlp with your symptoms. Keep wound clean and dry. Watch for any new or worsening symptoms including fevers, chills, drainage, increased pain, swelling. If any of these occur, please return for re- evaluation. Please refer to detox services the recovery team has provided you. Prescriptions: New Eucerin Advanced Repair Cream 1 appl topical DAILY 28 Days Qty: 454 0RF No Action amoxicillin-pot clavulanate 875-125 mg tablet 1 tab PO BID 5 Days Qty: 10 0RF Interventions: ED Discharge Assessment Last Done: 10/12/23 17:04 Discharge Date/Time: 10/12/23 17:04
[2023-10-12 09:04] VITALS: BP 125/67; PULSE 73; RESP 16; TEMP 37.1; O2SAT 96
--- NOTE | 2023-10-12 09:05 | PC.NURSE ---
this RN resumed care of pt at this time. a&ox4 but seemingly sleepy as he seems to doze off while conversating. pt responsive to verbal stimuli. vss and up to date. pt c/o 05/12 right hand pain. hand is noticeably red. warm to the touch. tender to touch. pt afebrile. ED provider aware. no sob/wob noted. respirations even and unlabored. pt waiting to have addiction medicine consult completed. plan of care ongoing.
--- NOTE | 2023-10-12 09:17 | PC.NURSE ---
urine obtained/sent to lab.
[2023-10-12 09:23] LABS: Appearance Urine Clear; Color Urine Yellow; Glucose Urine UA Negative (Negative); Leukocyte Esterase Urine Negative (Negative); Nitrite Urine Negative (Negative); Specific Gravity - Urine 1.025 (1.005-1.025); Urine Blood Negative (Negative); Urine Ketones Negative (Negative); Urine Protein Negative (Neg-Trace)
[2023-10-12 09:31] LABS: Amphetamine Screen Urine Not Detected (Not Detect); Barbiturates, Urine Not Detected (Not Detect); Benzodiazepines Screen Urine Not Detected (Not Detect); Cannabinoid Screen Urine Not Detected (Not Detect); Cocaine Screen Urine POSITIVE (Not Detect); Fentanyl, urine POSITIVE (Not Detect); Opiate Screen Urine POSITIVE (Not Detect); Phencyclidine Screen Urine Not Detected (Not Detect)
--- NOTE | 2023-10-12 10:36 | MHC.RECOVRN ---
Addendum entered by Fabiana Morocho 10/12/23 12:55: 12:30-awaiting review by [facility], facility notified t/w there is bed availability Original Note: Met with pt in ED [facility] after pt expressing desire for ATS. Pt had presented to the ED for bilateral hand pain. Pt sitting in bed, awake, alert, easily engages in conversation. Pt reports heroin/fentanyl use, 4-6 bundles daily, IV as well as 5 grams cocaine daily, IV x 6 months. Pt is not currently on MOUD. Pt is interested in ATS, however, declines [facility]. Is agreeable to any other facility. Pt denies other questions or concerns. T/w will conduct bedsearch.
[2023-10-12 13:17] VITALS: BP 108/68; PULSE 64; RESP 16; TEMP 36.4; O2SAT 97
--- NOTE | 2023-10-12 17:04 | PC.NURSE ---
pt left facility w/o d/c paperwork. ED provider notified/aware.
== END 2023-10-12 17:04 | disposition still patient (30) ==
PROVIDERS: Physician Assistant Medical; Emergency Provider Emergency Medicine
DX: M79.641 Pain in right hand (principal); M79.642 Pain in left hand; F11.20 Opioid dependence, uncomplicated; F14.20 Cocaine dependence, uncomplicated; Z59.02 Unsheltered homelessness
CPT/HCPCS: 80307; 81003; 99284

== ENCOUNTER 2023-10-13 01:17 | Emergency (ER) | payer MEDICAID, SELFPAY ==
[2023-10-13 01:46] VITALS: BP 154/102; PULSE 87; RESP 18; TEMP 36.6; O2SAT 97; BMI 22.2
--- NOTE | 2023-10-13 04:16 | ED.DENTAL ---
HPI - Dental/Oral General Chief complaint: Dental/Oral Stated complaint: dental pain Time Seen by Provider: 10/13/23 03:51 Source: patient Mode of arrival: ambulatory History of Present Illness HPI Narrative: 43-year-old male presents with complaints of left upper tooth pain and thinks he may have an infection. Otherwise he denies any fever, chills, difficulty swallowing or difficulty breathing. Related Data Previous Rx's Medication Instructions Recorded emollient combination no.119 1 appl topical DAILY 4 weeks #454 10/12/23 (Eucerin Advanced Repair topical grams cream) amoxicillin 875 mg-potassium 1 tab PO BID 5 days #10 tabs 10/13/23 clavulanate 125 mg tablet Allergies Allergy/AdvReac Type Severity Reaction Status Date / Time No Known Allergies Allergy Verified 10/12/23 00:59 Review of Systems Review of Systems: Pertinent positives and negatives as stated in HPI [facility] Past Medical History Source: nursing notes reviewed Medical History Polysubstance abuse Social History Social History Unable to assess alcohol history related to: Refusing to respond Alcohol intake: current Alcohol intake frequency: holidays/special occasions only Alcohol type: beer Patient Tobacco Use Status: Tobacco use Unknown Substance Use Type: Crack/Cocaine and Heroin Advance Directives: No Advance Directives Information Provided: No Physical Exam Vital Signs: Vital Signs: Last Vital Signs Temp 98 F 10/13/23 01:46 Pulse 87 10/13/23 01:46 Resp 18 10/13/23 01:46 BP 154/102 H 10/13/23 01:46 Pulse Ox 97 10/13/23 01:46 O2 Del Method Room Air 10/13/23 01:46 BMI result Body Mass Index 22.2 VITAL SIGNS: Reviewed. GENERAL: Well developed, well nourished, in no acute distress. HEAD: Normocephalic/atraumatic EYES: PERRLA, EOMI EARS: Ext canals without abnormality NOSE: Nares patent bilateral OROPHARYNX: no oral lesions noted, posterior pharynx clear, multiple dental caries, there is erythema along the gingival aspect of the left upper where multiple teeth are missing and broken off there is no gross purulence noted. NECK: Supple, no adenopathy LUNGS: Normal breath sounds. No adventitious sounds or accessory muscle use. SpO2<97> CARDIOVASCULAR: Regular rate and rhythm without noted murmurs, no JVD or lower extremity edema. ABDOMEN: Soft, non-tender, non-distended with bowel sounds. NEUROLOGIC: Alert and oriented x 4. Strength and sensation to light touch were grossly intact x 4. Medical Decision Making Medical Decision Making MDM Narrative: 43-year-old male with dental pain and suspected underlying infection. Patient started on antibiotics and received 1st dose here in the emergency room. Differential Diagnosis Differential Diagnoses: The differential diagnosis associated with the presentation includes Please see the discussion above Admission/Observation Consideration of admission/observation: Escalation of care including admission/observation considered Please see the discussion above Discharge Plan Discharge Clinical Impression: Infection of tooth Patient Disposition: Home, Self-Care Instructions: Dental Abscess (ED) Additional Instructions: 1. Please complete the entire course of antibiotics as prescribed. Return to the ER for any worsening symptoms. Prescriptions: New amoxicillin-pot clavulanate 875-125 mg tablet 1 tab PO BID 5 Days Qty: 10 0RF No Action Eucerin Advanced Repair Cream 1 appl topical DAILY 28 Days Qty: 454 0RF
== END 2023-10-13 04:35 | disposition home or self-care (01) ==
PROVIDERS: Emergency Provider Student in an Organized Health Care Education/Training Program
DX: K04.7 Periapical abscess without sinus (principal); K08.89 Other specified disorders of teeth and supporting structures
CPT/HCPCS: 99282; 99284